=== PATIENT | female | born 1935 | race Caucasian/White ===

== ENCOUNTER 2023-05-09 12:40 | Inpatient (IN) | payer MEDICARE, OTHER, SELFPAY ==
[2023-05-09] VITALS (8 sets, daily range): BP systolic 121–152; BP diastolic 58–94; BMI 32.0
[2023-05-09 08:43] LABS: % Basophils 0.4 % (0-2); % Eosinophils 1.3 % (0-6); % Immature Granulocytes 0.4 % (0-0.5); % Lymphocytes 9.9 % (20.5-51.1); % Monocytes 7.1 % (1.7-9.3); % Neutrophils 80.9 % (42.2-75.2); Absolute Eosinophils 0.1 10^3/uL (0-0.7); Absolute Monocytes 0.7 10^3/uL (0.1-0.6); Hematocrit 28.7 % (37.0-47.0); Hemoglobin 9.2 g/dL (12.0-16.0); Mean Corp Hgb Conc. 32.1 g/dL (33.0-37.0); Mean Corpuscular Hgb 28.7 pg (27.0-31.0); Mean Corpuscular Volume 89.4 fL (81.0-99.0); Nucleated Red Blood Cells % 0 %; Platelet Count 158 10^3/uL (130-400); Red Blood Cell Count 3.21 10^6/uL (4.20-5.40); Red Cell Dist. Width 16.6 % (11.5-14.5); White Blood Cell Count 9.9 10^3/uL (4.8-10.8)
[2023-05-09 08:54] LABS: Lactic Acid 2.3 mmol/L (0.7-2.0)
[2023-05-09 08:58] LABS: ALT (SGPT) 18 U/L (0-35); AST (SGOT) 20 U/L (14-36); Alkaline Phosphatase 90 U/L (38-126); Blood Urea Nitrogen 58 mg/dl (7-17); Calcium 9.1 mg/dl (8.4-10.2); Carbon Dioxide 17 mmol/L (22-30); Chloride 109 mmol/L (98-107); Glucose 222 mg/dl (70-99); Potassium 4.8 mmol/L (3.5-5.1); Sodium 138 mmol/L (135-145); Total Bilirubin 0.8 mg/dl (0.2-1.3); Total Protein 5.5 g/dl (6.3-8.2); eGFR 30.83
--- NOTE | 2023-05-09 08:58 | ED.GENMED ---
History of Present Illness
<Cherie Sunshine PA-C - Last Filed: 05/09/23 18:42>
General
Chief Complaint: Dizziness
Source: patient
Exam Limitations: none
Time Seen by Provider: 05/09/23 08:56
Nursing documentation reviewed up to this point in time: agreed with
Travel History
Have you had any contact with someone who has COVID-19?: No
Do you have any symptoms of coronavirus? Fever > 100 degrees, chills, cough, shortness of breath, sore throat, loss of taste or smell, muscle aches, or headache?: No
History of Present Illness
History of Present Illness:
87 y/o female with a PMH of HTN, HLP, NIDDM, stage III CKD, presenting today with several dizzy episodes x1 day and one episode of seizure-like activity. Son is with mom in room and reports that today, she complained of several episodes of
dizziness while she was using the bathroom. Son reports that she has been having on and off episodes of dizziness for the past week, and been having trouble controlling her blood pressure. He states that she started to have 1 episode of tremors,
clenched jaw, and unresponsiveness for around 2 minutes. Son reports that she has never had an episode like this before. Patient does not recall the episode. She states that she was feeling dizzy in the bathroom and called for her son when
reportedly the seizure episode occurred. Of note, son reports that patient has had frequent fluctuations in her blood pressure. Currently, patient is on amlodipine, hydralazine, and labetalol. Son states that her blood pressure will drop low, she
will feel dizzy, and then he will withhold her next dose of blood pressure medications. He states that then, her blood pressure will spike very high and he will give 1 or 2 blood pressure pills and will likely drop again. Of note, patient also
reports that she has had a cough for the past 2 weeks ever since she left the rehab facility for her shoulder. Patient denies shortness of breath, chest pain, belly pain, dysuria, headaches, head trauma, falls.
Past History
<Cherie Sunshine PA-C - Last Filed: 05/09/23 18:42>
Past History
ED Past Medical History: HTN, Hypercholesterolemia, IDDM, Renal failure (Chronic kidney disease stage III) and Other (UTIs, one episode of urosepsis)
ED Past Surgical History: Other (Patient has a history of a hysterectomy)
Social History
Tobacco: Non-smoker
Alcohol: None
Personal:
Living: alone
Employment: Retired
Family History
Family History: Other (Noncontributory)
Review of Systems
<Cherie Sunshine PA-C - Last Filed: 05/09/23 18:42>
Review of Systems
All Other Systems: ROS reviewed and negative except as documented in HPI and ROS
Phy Exam
<Cherie Sunshine PA-C - Last Filed: 05/09/23 18:42>
Physical Exam
Physical Exam:
General: patient appears ill, no acute distress
Skin: warm and dry, no rashes or lesions
Cardiac: regular rate and rhythm, no murmurs
Peripheral Vascular: no lower extremity edema
Pulm: increased respiratory rate, end expiratory wheezes heard at lung bases, no rhonchi
Abdomen: no abdominal tenderness
Neuro: AAO x3. CN II-XII. Finger to nose, heel to williamson testing intact.
Course
<Cherie Sunshine PA-C - Last Filed: 05/09/23 18:42>
Orders/Labs/Results
Orders:
Orders
05/09/23 08:24
Electrocardiogram (*1) Urgent
Reason for Study: Vertigo / Dizzy
EKG- Treatment ONCE
05/09/23 08:35
CMP [Comprehensive Metabolic Panel] Urgent
COVID-19 Antigen Urgent
Source: Nasal Swab
Complete Blood Count/With Diff Urgent
Lactic Acid Urgent
Influenza A+B Rapid Molecular Urgent
SO Source: Nasal Swab
Specimen Description:
05/09/23 09:40
CT Head W/o Iv Contrast Urgent
Comment:
Reason For Exam: reported seizure like activity
Oseltamivir Phosphate [Tamiflu] 75 mg PO NOW STA
CR Chest - 2 Views Urgent
Comment:
Reason For Exam: cough, SOB
05/09/23 Lunch
2000 calorie (17 carb) Diabetic
At Your Request: Limited Participation
05/09/23 11:48
Admit/Transfer Patient As Directed
Co-Sign Provider:
Level of Care: Inpatient admission
Assign to:: Telemetry
Physician / Group: hosp
Diagnosis: Syncope versus seizure
Reason for Telemetry: Medication for Arrhythmia
Date to Stop Telemetry: 05/11/23
Time to Stop Telemetry: 11:00
Reason for Hospitalization: Acute influenza B/syncope/hypotension
Expected length of stay greater than two midnights?: Yes
ELOS- Estimated Length of Stay in days: 3
I certify the patient meets the requirements for IP care: Yes
05/09/23 11:51
Code Status As Directed
Resuscitation Status: Full Code
05/09/23 12:02
Dextrose 50%-Water [Dextrose 50% Syringe] 12.5 grams IV [id number] PRN
Glucagon [GlucaGen] 1 mg IM PRN PRN
Bedside Glucose Monitoring As Directed
Frequency: AC&HS
Comment: Change to q6h if pt on TPN, tube feeding or not eating
05/09/23 14:51
0.9% Sodium Chloride 1000 ml [Nss] 1,000 ml IV 60 mls/hr
Acetaminophen [Tylenol] 650 mg PO Q4HPRN PRN
Escitalopram Oxalate [Lexapro] 10 mg PO 1300
Ipratropium/Albuterol Sulfate [Duoneb] 3 ml INH R QID
05/09/23 14:51
Activity As Directed
Activity Level: With Assistance
Intake/ Output As Directed
Frequency: Per unit guidelines
Neurological Checks As Directed
Frequency: Per unit guidelines
Vital Signs As Directed
Frequency: Per unit guidelines
Pulse Ox/spot Check [RESP] Routine
Quantity: 1
DX Deep Vein Thrombosis Video Routine
05/09/23 15:00
HydrALAZINE [Apresoline] 25 mg PO QID
05/09/23 15:14
Complete Blood Count/No Diff Routine
05/09/23 16:30
Insulin Aspart Corrective Low [Novolog Flexpen-Low Resistance] See Protocol SC AC
05/09/23 20:00
Heparin 5,000 units SC Q12
Labetalol [Trandate] 300 mg PO BID
05/09/23 22:00
Atorvastatin [Lipitor] 20 mg PO HS
05/10/23 06:00
Basic Metabolic Panel IN AM
Complete Blood Count/No Diff IN AM
Glycohemoglobin (HgbA1c) IN AM
Iron IN AM
Total Iron Binding IN AM
05/10/23 08:00
Amlodipine [Norvasc] 2.5 mg PO DAILY
Glimepiride [Amaryl] 0.5 mg PO DAILY
Oseltamivir Phosphate [Tamiflu] 30 mg PO DAILY
05/11/23 06:00
Basic Metabolic Panel IN AM
Complete Blood Count/No Diff IN AM
05/11/23 11:00
DC Protocol for Telemetry ONCE
05/12/23 06:00
Basic Metabolic Panel IN AM
Abnormal Lab Results
05/09/23
08:35
RBC 3.21 L 10^6/uL
(4.20-5.40)
Hgb 9.2 L g/dL
(12.0-16.0)
Hct 28.7 L %
(37.0-47.0)
MCHC 32.1 L g/dL
(33.0-37.0)
RDW 16.6 H %
(11.5-14.5)
Absolute Neuts (auto) 8.0 H 10^3/uL
(1.4-6.5)
Absolute Lymphs (auto) 1.0 L 10^3/uL
(1.2-3.4)
Absolute Monos (auto) 0.7 H 10^3/uL
(0.1-0.6)
Neutrophils % 80.9 H %
(42.2-75.2)
Lymphocytes % 9.9 L %
(20.5-51.1)
Chloride 109 H mmol/L
(98-107)
Carbon Dioxide 17 L mmol/L
(22-30)
BUN 58 H mg/dl
(7-17)
Creatinine 1.6 H mg/dL
(0.6-1.0)
Glucose 222 H mg/dl
(70-99)
Lactic Acid 2.3 H mmol/L
(0.7-2.0)
Total Protein 5.5 L g/dl
(6.3-8.2)
Albumin 3.0 L g/dl
(3.5-5.0)
05/09/23 08:35
05/09/23 08:35
Vital Signs
Initial and Last Documented VS:
Initial Vital Signs
Temp Pulse Resp BP Pulse Ox
97.9 F 66 15 121/70 94
05/09/23 08:26 05/09/23 08:26 05/09/23 08:26 05/09/23 08:26 05/09/23 08:26
Last Documented Vital Signs
Temp Pulse Resp BP Pulse Ox
98.4 F 68 16 152/71 98
05/09/23 14:43 05/09/23 18:19 05/09/23 18:19 05/09/23 15:44 05/09/23 18:19
<Dedrick Joshi, DO - Last Filed: 05/09/23 10:39>
Orders/Labs/Results
Orders:
Orders
05/09/23 08:24
Electrocardiogram (*1) Urgent
Reason for Study: Vertigo / Dizzy
EKG- Treatment ONCE
05/09/23 08:35
CMP [Comprehensive Metabolic Panel] Urgent
COVID-19 Antigen Urgent
Source: Nasal Swab
Complete Blood Count/With Diff Urgent
Lactic Acid Urgent
Influenza A+B Rapid Molecular Urgent
SO Source: Nasal Swab
Specimen Description:
05/09/23 09:40
CT Head W/o Iv Contrast Urgent
Comment:
Reason For Exam: reported seizure like activity
Oseltamivir Phosphate [Tamiflu] 75 mg PO NOW STA
CR Chest - 2 Views Urgent
Comment:
Reason For Exam: cough, SOB
05/09/23 Lunch
2000 calorie (17 carb) Diabetic
At Your Request: Limited Participation
05/09/23 11:48
Admit/Transfer Patient As Directed
Co-Sign Provider:
Level of Care: Inpatient admission
Assign to:: Telemetry
Physician / Group: hosp
Diagnosis: Syncope versus seizure
Reason for Telemetry: Medication for Arrhythmia
Date to Stop Telemetry: 05/11/23
Time to Stop Telemetry: 11:00
Reason for Hospitalization: Acute influenza B/syncope/hypotension
Expected length of stay greater than two midnights?: Yes
ELOS- Estimated Length of Stay in days: 3
I certify the patient meets the requirements for IP care: Yes
05/09/23 11:51
Code Status As Directed
Resuscitation Status: Full Code
05/09/23 12:02
Dextrose 50%-Water [Dextrose 50% Syringe] 12.5 grams IV [id number] PRN
Glucagon [GlucaGen] 1 mg IM PRN PRN
Bedside Glucose Monitoring As Directed
Frequency: AC&HS
Comment: Change to q6h if pt on TPN, tube feeding or not eating
05/09/23 14:51
0.9% Sodium Chloride 1000 ml [Nss] 1,000 ml IV 60 mls/hr
Acetaminophen [Tylenol] 650 mg PO Q4HPRN PRN
Escitalopram Oxalate [Lexapro] 10 mg PO 1300
Ipratropium/Albuterol Sulfate [Duoneb] 3 ml INH R QID
05/09/23 14:51
Activity As Directed
Activity Level: With Assistance
Intake/ Output As Directed
Frequency: Per unit guidelines
Neurological Checks As Directed
Frequency: Per unit guidelines
Vital Signs As Directed
Frequency: Per unit guidelines
Pulse Ox/spot Check [RESP] Routine
Quantity: 1
DX Deep Vein Thrombosis Video Routine
05/09/23 15:00
HydrALAZINE [Apresoline] 25 mg PO QID
05/09/23 15:14
Complete Blood Count/No Diff Routine
05/09/23 16:30
Insulin Aspart Corrective Low [Novolog Flexpen-Low Resistance] See Protocol SC AC
05/09/23 20:00
Heparin 5,000 units SC Q12
Labetalol [Trandate] 300 mg PO BID
05/09/23 22:00
Atorvastatin [Lipitor] 20 mg PO HS
05/10/23 06:00
Basic Metabolic Panel IN AM
Complete Blood Count/No Diff IN AM
Glycohemoglobin (HgbA1c) IN AM
Iron IN AM
Total Iron Binding IN AM
05/10/23 08:00
Amlodipine [Norvasc] 2.5 mg PO DAILY
Glimepiride [Amaryl] 0.5 mg PO DAILY
Oseltamivir Phosphate [Tamiflu] 30 mg PO DAILY
05/11/23 06:00
Basic Metabolic Panel IN AM
Complete Blood Count/No Diff IN AM
05/11/23 11:00
DC Protocol for Telemetry ONCE
05/12/23 06:00
Basic Metabolic Panel IN AM
Abnormal Lab Results
05/09/23
08:35
RBC 3.21 L 10^6/uL
(4.20-5.40)
Hgb 9.2 L g/dL
(12.0-16.0)
Hct 28.7 L %
(37.0-47.0)
MCHC 32.1 L g/dL
(33.0-37.0)
RDW 16.6 H %
(11.5-14.5)
Absolute Neuts (auto) 8.0 H 10^3/uL
(1.4-6.5)
Absolute Lymphs (auto) 1.0 L 10^3/uL
(1.2-3.4)
Absolute Monos (auto) 0.7 H 10^3/uL
(0.1-0.6)
Neutrophils % 80.9 H %
(42.2-75.2)
Lymphocytes % 9.9 L %
(20.5-51.1)
Chloride 109 H mmol/L
(98-107)
Carbon Dioxide 17 L mmol/L
(22-30)
BUN 58 H mg/dl
(7-17)
Creatinine 1.6 H mg/dL
(0.6-1.0)
Glucose 222 H mg/dl
(70-99)
Lactic Acid 2.3 H mmol/L
(0.7-2.0)
Total Protein 5.5 L g/dl
(6.3-8.2)
Albumin 3.0 L g/dl
(3.5-5.0)
05/09/23 08:35
05/09/23 08:35
Vital Signs
Initial and Last Documented VS:
Initial Vital Signs
Temp Pulse Resp BP Pulse Ox
97.9 F 66 15 121/70 94
05/09/23 08:26 05/09/23 08:26 05/09/23 08:26 05/09/23 08:26 05/09/23 08:26
Last Documented Vital Signs
Temp Pulse Resp BP Pulse Ox
98.4 F 68 16 152/71 98
05/09/23 14:43 05/09/23 18:19 05/09/23 18:19 05/09/23 15:44 05/09/23 18:19
<Cherie Sunshine PA-C - Last Filed: 05/09/23 18:42>
MDM/Problems Addressed
Differential Diagnosis Includes:
cough: influenza, pneumonia
dizziness/seizure like activity: hypotension, hypoglycemia, anemia, syncope, electrolyte derangement, encephalitis, intracranial mass
MDM/Problems Addressed:
cough
dizziness
seizure
Chronic conditions affecting care: DM, HTN and Kidney disease
Acute Exacerbation and/or Progression of Chronic Illness: HTN
<Cherie Sunshine PA-C - Last Filed: 05/09/23 18:42>
*Pulse Oximetry
Patient hypoxic: no
*Critical Care Note
Total Time (30-74mins, 75-104mins- exclusive of procedures): Not Applicable
Data Reviewed
Review of Other/Old Records Reveals: Labs (CMP consistent with patient's chronic renal disease, CBC shows chronic anemia) and Discharge Summary (Reviewed discharge summary from 04/12/2023)
<Cherie Sunshine PA-C - Last Filed: 05/09/23 18:42>
Patient Management
Escalation/DeEscalation of care consider admission/obs:
87-year-old female with a past medical history of hypertension, CKD, hyperlipidemia, diabetes who presents to the emergency department today with cough and weakness for the past few days, and also dizziness/seizure like activity x 1 day. Apparent
seizure episode occurred when patient used the bathroom, and her blood pressure dropped low. I suspect her seizure episode was likely vasovagal syncope. However, considering she had never had anything like this before, a CT of the head was
obtained which was negative for any acute intracranial disease. While here in the emergency department, she did test positive for flu. Chest x-ray was negative for concurrent pneumonia. Considering her symptoms have persisted for quite some time
at home, her comorbidities, and her new disease, we will plan to admit for supportive care and further evaluation.
ED Attending Note
<Cherie Sunshine PA-C - Last Filed: 05/09/23 18:42>
-
Portions of this chart may have been created with voice recognition software.� Occasional wrong word or��sound alike� substitutions may have occurred due to the inherent limitations of voice recognition software.
<Dedrick Joshi, - Last Filed: 05/09/23 10:39>
ED Attending Note
Patient seen and examined by attending physician: Yes
I performed a history and physical exam of patient and discussed management with resident, I reviewed resident's note and agree with documented findings and plan of care.: Yes
ED Attending Note:
I have reviewed and agree with history and treatment plan by Cherie Sunshine. My exam revealed
Physical Exam
General: Afebrile
Neck: supple. no meningeal signs. normal posterior pharynx
Heart: s1/s2 regular rate and rhythm, no murmur. equal radial
pulses.
HEENT: Pupils equal round reactive to light, EOMI
Lungs: no acute respiratory distress. End expiratory wheezes bilaterally
Abdomen: normal bowel sounds. not tender. no CVAT
Neuro: alert and oriented. no focal neurological deficits cranial nerves II through XII intact
Skin: no rash
Psychiatric: well kept. interactive and cooperative
Extremities: no edema. no calf tenderness. negative homans. good distal pulses
Discharge Plan
Departure
Patient Disposition: Admit
Date of Disposition: 05/09/23
Time of Disposition: :09
Admit to: Med/Surg
Presentation/result/management discussed w/ accepting MD/DO: Hospitalist
Patient with high blood pressure during this ER visit?: No
Condition: Fair
Discharge Problem:
Influenza, Dizziness
Interventions
Interventions:
*Risk Screen - Suicide Last Done: 05/09/23 08:29
*Neglect/Abuse Screening Last Done: 05/09/23 08:29
ED- Fall Risk Assessment Last Done: 05/09/23 08:41
*ED COVID-19 Vaccine History Last Done: 05/09/23 08:40
*Nursing Disposition Last Done: 05/09/23 14:38
ED- Neurological Assessment Last Done: 05/09/23 08:41
ED- Cardiac Assessment Last Done: 05/09/23 08:41
ED Swallowing Screen Last Done: 05/09/23 09:35
Discharge Date and Time
Discharge Date/Time: 05/09/23 14:39
[2023-05-09 09:29] LABS: COVID-19 Antigen Negative (Negative)
[2023-05-09] MEDS: TAMIFLU 75 MG PO (09:46)
--- NOTE | 2023-05-09 12:03 | HPS.HSE ---
Family Physician
-
Family Physician: Erik Kaminski
Chief Complaint
-
Questionable seizure
History of Present Illness
87 y/o female with a PMH of HTN, HLP, NIDDM, stage III CKD, presenting today with several dizzy episodes x1 day and one episode of seizure-like activity.� Son is with mom in room and reports that today, she complained of several episodes of
dizziness while she was using the bathroom. Son reports that she has been having on and off episodes of dizziness for the past week, and been having trouble controlling her blood pressure. He states that she started to have 1 episode of tremors,
clenched jaw, and unresponsiveness for around 2 minutes.� Son reports that she has never had an episode like this before.� Patient does not recall the episode. She states that she was feeling dizzy in the bathroom and called for her son when
reportedly the seizure episode occurred. By description there was no apparent postictal period. Of note, son reports that patient has had frequent fluctuations in her blood pressure.�
Currently, patient is on amlodipine, hydralazine, and labetalol.� Son states that her blood pressure will drop low, she will feel dizzy, and then he will withhold her next dose of blood pressure medications.� He states that then, her blood pressure
will spike very high and he will give 1 or 2 blood pressure pills and will likely drop again.� Of note, patient also reports that she has had a cough for the past 2 weeks ever since she left the rehab facility for her shoulder.� After discharge from
[facility] she was seen by visiting nurses who felt that the cough should be treated with a course of Mucinex this past week is unclear whether the cough became worse as the prompting them to change treatment she did not have any febrile illness
throughout this past week. Patient denies shortness of breath, chest pain, belly pain, dysuria, headaches, head trauma, falls.
She was recently hospitalized with a presentation of hypoglycemia adjusting glimepiride dosing at time of discharge along with hemorrhagic cystitis that was treated with antibiotic and was seen and followed by urology prior to that the patient
suffered a humeral fracture there is still undergoing and needs follow-up with orthopedics she did not have a chance to have follow-up with orthopedics during her stay at [facility] and that is still pending she is still using a sling for the left arm
remains discolored and ecchymotic. She has very little range of motion to it. As part of that last admission she had a significant acute kidney injury in relation to contrast induced nephropathy with her creatinine going as high as 4.0 at the time
of her discharge her creatinine was 2.4 and is presently 1.8.
First time her blood sugars were measured on this occasion it was a value of 245 she also presented hypotensive
Medical History
Past Medical History
Past Medical History: Reports HTN, NIDDM, Renal Failure and Valvular Disease (Prior mild aortic stenosis with recheck of 2D echocardiogram also recent admission noting no change); Denies Seizures
Additional Past Medical History:
Recent left humeral fracture
Past Surgical History: Reports Gynocological
Additional Past Surgical History:
Hysterectomy
Social History
Tobacco: Non-smoker
Alcohol: None
Drug: None
Personal:
Living: Alone
Employment: Retired
Family History
Family History: Not pertinent
Allergies / Home Medications
Allergies reflects when Allergies were last updated in [facility].
Home Medications with original date entered in [facility]
Allergy/Medication List:
Allergies
Allergy/AdvReac Type Severity Reaction Status Date / Time
No Known Allergies Allergy Verified 05/09/23 08:40
Home Medications
atorvastatin 20 mg tablet (Lipitor) 20 mg PO HS 04/04/23
glimepiride 1 mg tablet 0.5 mg PO DAILY #0 tabs 04/12/23
labetalol 100 mg tablet 300 mg PO BID #0 tabs 04/12/23
Lactobac no.2-Bifidobac no.1-S. thermo 112.5 billion cell capsule (Visbiome) 1 cap PO DAILY 05/09/23
acetaminophen 325 mg tablet (Tylenol) 325 mg PO TIDPRN PRN mild pain 05/09/23
amlodipine 5 mg tablet 2.5 mg PO DAILY 05/09/23
escitalopram oxalate 10 mg tablet 10 mg PO 1300 05/09/23
guaifenesin 600 mg tablet, extended release 12 hr (Mucinex) 600 mg PO BID 05/09/23
hydrocortisone 1 % topical cream (Preparation H Hydrocortisone) 1 applic topical BID PRN hemorrihoids 05/09/23
loperamide 2 mg tablet 2 mg PO BIDPRN PRN diarrhea 05/09/23
Review of Systems
-
History Source: Patient and Family
Constitutional: Reports Fatigue; Denies Fever
Respiratory: Reports Cough
Cardiac: Reports No Symptoms
Abdomen/GI: Reports No Symptoms
: Reports No Symptoms
Skin: Reports Other
Physical Exam
Vital Signs
Vital Signs
Temp Pulse Resp BP Pulse Ox
97.9 F 71 19 137/71 96
05/09/23 08:26 05/09/23 11:15 05/09/23 11:15 05/09/23 11:00 05/09/23 11:15
Physical Exam
General: No Apparent Distress and Comfortable
HEENT: NormoCephalic
Respiratory: Rales (Harsh congested cough nonproductive), Rhonchi and Non Labored Respirations; No Accessory Resp Muscle Use
Cardiac: S1/S2, Regular Rhythm and Murmur
GI: Soft
Musculoskeletal: Edema, Left Upper Extremity (Ecchymosis from the mid bicep down to the elbow diminished range of motion and still referred pain)
Neuro: Awake, Alert, Oriented and AO x 3
Psych: Calm
Laboratory Results
-
05/09/23 08:35
05/09/23 08:35
Laboratory Results
Lactic Acid 2.3 mmol/L (0.7-2.0) H 05/09/23 08:35
Total Bilirubin 0.8 mg/dl (0.2-1.3) 05/09/23 08:35
AST 20 U/L (14-36) 05/09/23 08:35
ALT 18 U/L (0-35) 05/09/23 08:35
Alkaline Phosphatase 90 U/L (38-126) 05/09/23 08:35
Data Reviewed
-
Critical Care Time (in minutes): 56
Diagnostic Radiology: Report Reviewed by me and Discussed with Physician
CT Scan: Report Reviewed by me (Unremarkable CT of the head) and Discussed with Physician
Lab Data: Labs Reviewed by me (Creatinine down to at 1.8/bicarb 17 anion gap of 12/positive influenza B swab)
Impression/Plan
-
IMPRESSION:
87 y/o female with a PMH of HTN, HLP, NIDDM, stage III CKD, presenting today with several dizzy episodes x1 day and one episode of seizure-like activity.� Son is with mom in room and reports that today, she complained of several episodes of
dizziness while she was using the bathroom. Son reports that she has been having on and off episodes of dizziness for the past week, and been having trouble controlling her blood pressure. He states that she started to have 1 episode of tremors,
clenched jaw, and unresponsiveness for around 2 minutes.� Son reports that she has never had an episode like this before.� Patient does not recall the episode. She states that she was feeling dizzy in the bathroom and called for her son when
reportedly the seizure episode occurred. By description there was no apparent postictal period. Of note, son reports that patient has had frequent fluctuations in her blood pressure.�
Currently, patient is on amlodipine, hydralazine, and labetalol.� Son states that her blood pressure will drop low, she will feel dizzy, and then he will withhold her next dose of blood pressure medications.� He states that then, her blood pressure
will spike very high and he will give 1 or 2 blood pressure pills and will likely drop again.� Of note, patient also reports that she has had a cough for the past 2 weeks ever since she left the rehab facility for her shoulder.� After discharge from
[facility] she was seen by visiting nurses who felt that the cough should be treated with a course of Mucinex this past week is unclear whether the cough became worse as the prompting them to change treatment she did not have any febrile illness
throughout this past week. Patient denies shortness of breath, chest pain, belly pain, dysuria, headaches, head trauma, falls.
She was recently hospitalized with a presentation of hypoglycemia adjusting glimepiride dosing at time of discharge along with hemorrhagic cystitis that was treated with antibiotic and was seen and followed by urology prior to that the patient
suffered a humeral fracture there is still undergoing and needs follow-up with orthopedics she did not have a chance to have follow-up with orthopedics during her stay at [facility] and that is still pending she is still using a sling for the left arm
remains discolored and ecchymotic. She has very little range of motion to it. As part of that last admission she had a significant acute kidney injury in relation to contrast induced nephropathy with her creatinine going as high as 4.0 at the time
of her discharge her creatinine was 2.4 and is presently 1.8.
First time her blood sugars were measured on this occasion it was a value of 245 she also presented hypotensive
Influenza B
-Chest x-ray clear
-No apparent sepsis is not tachycardic and nor significant leukocytosis
-Unclear what treatment window is for her is indistinct onset of symptoms
-Significant congestion and cough
-Will place on renal dose Tamiflu for now/as elderly patient requiring hospitalization
-Cautious IV fluids
-Nebulizer and expectorant
Hypotension/questionable syncope versus seizure
-Having labile hypertension and hypotension as outpatient per family
-Tend to feel that the probably in relation to transient blood pressure changes she has had
-Cautious hydration
-CT of the head unremarkable/recent CTA also unremarkable
-Resume labetalol and amlodipine and low-dose hydralazine monitor
-Neurochecks/would hold off on neurology consult
Chronic kidney disease stage IIIb
-Recently admitted and had contrast-induced nephropathy with creatinine as high as 4.0
-Now seems to be at baseline creatinine 1.8
-Continue to monitor especially with swings in blood pressure
Systolic ejection murmur
-Mild to moderate aortic stenosis seen on most recent echo
-Could also be manifesting swings in blood pressure and symptoms
Recent humeral fracture left arm
-Continue immobilization and nonweightbearing
-He is to have outpatient follow-up with orthopedics
Type 2 diabetes mellitus
-Was hypoglycemic on most recent admission
-Had glimepiride reduced to 0.5 mg
-Sliding scale coverage no apparent presentation of hypoglycemia present event
Full CODE STATUS
DVT prophylaxis with heparin
[2023-05-09 15:23] LABS: Hematocrit 26.7 % (37.0-47.0); Hemoglobin 8.8 g/dL (12.0-16.0); Mean Corpuscular Hgb 28.8 pg (27.0-31.0); Mean Corpuscular Volume 87.3 fL (81.0-99.0); Mean Platelet Volume 10.1 fL (7.4-10.4); Platelet Count 152 10^3/uL (130-400); Red Blood Cell Count 3.06 10^6/uL (4.20-5.40); Red Cell Dist. Width 16.6 % (11.5-14.5)
[2023-05-09 15:29] LABS: Glucose - Point of Care 171 mg/dl (70-99)
[2023-05-09] MEDS: DUONEB 3 ML INH ×2 (15:36→18:17)
[2023-05-09] MEDS: NSS 1000 IV (15:42)
[2023-05-09] MEDS: DUONEB INH (15:42)
[2023-05-09] MEDS: APRESOLINE 25 MG PO ×2 (15:44→22:14)
[2023-05-09] MEDS: LEXAPRO 10 MG PO (15:44)
[2023-05-09] MEDS: APRESOLINE PO (16:27)
[2023-05-09] MEDS: NOVOLOG FLEXPEN-LOW RESISTANCE 1 UNITS SC (16:58)
[2023-05-09] MEDS: TRANDATE 300 MG PO (20:13)
[2023-05-09] MEDS: HEPARIN 5000 UNITS SC (20:13)
[2023-05-09 22:14] LABS: Glucose - Point of Care 115 mg/dl (70-99)
[2023-05-09] MEDS: LIPITOR 20 MG PO (22:14)
[2023-05-10] VITALS (7 sets, daily range): BP systolic 105–165; BP diastolic 48–78; PULSE 61–69
--- NOTE | 2023-05-10 01:37 | PTCARENOTE ---
Rec'd pt at the start of the shift awake and alert. Left arm is in a sling. arm is bruised. Only complaint of pain is with movement. NSS infusing as ordered. Pt is hopeful to go home tomorrow. Will continue to monitor closely.
[2023-05-10] MEDS: NSS 1000 IV (06:14)
[2023-05-10 07:47] LABS: Hematocrit 26.1 % (37.0-47.0); Hemoglobin 8.3 g/dL (12.0-16.0); Mean Corp Hgb Conc. 31.8 g/dL (33.0-37.0); Mean Corpuscular Hgb 28.8 pg (27.0-31.0); Mean Corpuscular Volume 90.6 fL (81.0-99.0); Mean Platelet Volume 10.4 fL (7.4-10.4); Platelet Count 141 10^3/uL (130-400); Red Blood Cell Count 2.88 10^6/uL (4.20-5.40); Red Cell Dist. Width 16.4 % (11.5-14.5); White Blood Cell Count 7.1 10^3/uL (4.8-10.8)
[2023-05-10 08:05] LABS: Blood Urea Nitrogen 59 mg/dl (7-17); Calcium 8.6 mg/dl (8.4-10.2); Carbon Dioxide 16 mmol/L (22-30); Chloride 112 mmol/L (98-107); Estimated Creatinine Clearance 21 ml/min; Glucose 105 mg/dl (70-99); Iron 49 ug/dl (37-170); Potassium 4.7 mmol/L (3.5-5.1); Sodium 138 mmol/L (135-145); eGFR 30.83
[2023-05-10 08:15] LABS: Percent Saturation 23 % (20-50); Total Iron Binding Capacity 210 ug/dl (265-497)
[2023-05-10 08:21] LABS: Glucose - Point of Care 100 mg/dl (70-99)
[2023-05-10] MEDS: DUONEB 3 ML INH ×2 (08:23→15:24)
[2023-05-10 08:50] LABS: Glycohemoglobin (HgbA1c) 5.8 % (4.0-5.6)
[2023-05-10] MEDS: NOVOLOG FLEXPEN-LOW RESISTANCE SC ×2 (10:09→18:25)
[2023-05-10] MEDS: TRANDATE 300 MG PO (10:09)
[2023-05-10] MEDS: TAMIFLU 30 MG PO (10:10)
[2023-05-10] MEDS: NORVASC 2.5 MG PO (10:11)
[2023-05-10] MEDS: APRESOLINE 25 MG PO ×3 (10:11→22:06)
[2023-05-10] MEDS: AMARYL 0.5 MG PO (10:11)
[2023-05-10] MEDS: HEPARIN 5000 UNITS SC ×2 (10:12→20:38)
[2023-05-10] MEDS: LEXAPRO PO (11:40)
[2023-05-10 11:50] LABS: Glucose - Point of Care 182 mg/dl (70-99)
[2023-05-10] MEDS: NOVOLOG FLEXPEN-LOW RESISTANCE 1 UNITS SC (11:52)
[2023-05-10] MEDS: DUONEB INH ×2 (12:04→19:46)
[2023-05-10] MEDS: LEXAPRO 10 MG PO (13:44)
--- NOTE | 2023-05-10 13:54 | W.PN.HOSP.TC ---
Today's Communication/Plan
-
cont tamiflu
PT/OT
seems like will need BP adjustment
Assessment / Plan
Assessment / Plan
pt is an 87 year old female
Hypotension/questionable syncope versus seizure--Having labile hypertension and hypotension as outpatient per family--Tend to feel that the probably in relation to transient blood pressure changes she has had--Cautious hydration, on IVF--CT of the
head unremarkable/recent CTA also unremarkable--Resume labetalol and amlodipine and low-dose hydralazine monitor--Neurochecks/would hold off on neurology consult
Influenza B--Chest x-ray clear--No apparent sepsis is not tachycardic and nor significant leukocytosis--Unclear what treatment window is for her is indistinct onset of symptoms--Significant congestion and cough--Will place on renal dose Tamiflu for
now/as elderly patient requiring hospitalization--Cautious IV fluids--Nebulizer and expectorant
Chronic kidney disease stage IIIb--Recently admitted and had contrast-induced nephropathy with creatinine as high as 4.0--Now seems to be at baseline creatinine 1.8--Continue to monitor especially with swings in blood pressure
Systolic ejection murmur--Mild to moderate aortic stenosis seen on most recent echo--Could also be manifesting swings in blood pressure and symptoms
Recent humeral fracture left arm-Continue immobilization and nonweightbearing-- is to have outpatient follow-up with orthopedics
Type 2 diabetes mellitus-Was hypoglycemic on most recent admission-Had glimepiride reduced to 0.5 mg-Sliding scale coverage no apparent presentation of hypoglycemia present event
Full CODE STATUS
DVT prophylaxis with heparin
Anticipated Discharge: > 48 hours
Subjective/Interval History
-
Date of Service: May 10, 2023
pt with arm in sling, doesn't know why she is in the hospital
Objective Data
-
Labs:
Laboratory Results
05/10/23
07:29
WBC 7.1
Hgb 8.3 L
Hct 26.1 L
Plt Count 141
Sodium 138
Potassium 4.7
Chloride 112 H
Carbon Dioxide 16 L
BUN 59 H
Creatinine 1.6 H
Glucose 105 H
Calcium 8.6
Vital Signs:
max temp for 24 hours
05/10/23
03:00
Temp 98.2 F
Vital Signs
Temp Pulse Resp BP Pulse Ox
97.5 F 72 16 165/78 97
05/10/23 07:25 05/10/23 08:29 05/10/23 08:29 05/10/23 07:25 05/10/23 08:29
I&O
05/09/23 05/10/23 05/11/23
06:59 06:59 06:59
Intake Total 420 / 420 1200 / 1200
Balance 420 / 420 1200 / 1200
Review of Systems
-
All other systems: Reviewed and negative
Physical Exam
-
General: Well Developed, Well Nourished and No Apparent Distress
HEENT: Normocephalic, Atraumatic and Other (face mask in place)
Respiratory: Clear to Auscultation; Negative Wheezes or Rhonchi
Cardiac: Regular Rhythm, S1/S2 and Murmur
GI: Soft, Nontender, Nondistended and Normal Bowel Sounds
Musculoskeletal: No Clubbing, No Cyanosis, No Edema and Other (left arm in a sling)
Neuro: Awake and Alert
Psych: Calm and Confused (can't tell me why she is here)
--- NOTE | 2023-05-10 16:04 | CM ---
Patient with quarantine restrictions due to Flu. CM spoke with patient son and physician via phone, IA completed. Per patient son,
Patient resides with her son & [id number] in a 2SH with 4STE. Patient son reports that he provides assistance with adls & mobility. Patient has been recently at [facility], and did not participate in therapies. Patient has [facility] currently and
would like to have them restart. Patient son states that he is arranging with [facility] to provide medications and has a r/w, single point cane, rollator, wheelchair. Currently patient uses [facility] on [address] [place]. Patient PCP is Dr. Kaminski.
Patient son states that he would like to have patient discharged back to home with [facility]. CM will continue to follow for discharge planning needs.
Plan; home with [facility] to restart for PT/OT and medication
[2023-05-10 17:04] LABS: Glucose - Point of Care 101 mg/dl (70-99)
[2023-05-10] MEDS: APRESOLINE PO (18:40)
[2023-05-10] MEDS: TRANDATE PO (20:38)
[2023-05-10 21:35] LABS: Glucose - Point of Care 113 mg/dl (70-99)
[2023-05-10] MEDS: LIPITOR 20 MG PO (22:06)
--- NOTE | 2023-05-10 23:44 | PTCARENOTE ---
Nader BAEZNP on the unit and made aware that pt had refused her 8pm Trandate as she was fearful that it would drop her blood pressure too low. BP at the time was 109/49. She did take her 10pm Apresoline for BP of 124/64
[2023-05-11] VITALS (11 sets, daily range): BP systolic 99–155; BP diastolic 39–77; PULSE 62–89; O2SAT 97
[2023-05-11 07:38] LABS: Glucose - Point of Care 95 mg/dl (70-99)
[2023-05-11] MEDS: NOVOLOG FLEXPEN-LOW RESISTANCE SC ×3 (07:56→16:45)
[2023-05-11] MEDS: HEPARIN 5000 UNITS SC ×2 (07:59→20:43)
[2023-05-11] MEDS: APRESOLINE 25 MG PO ×4 (07:59→22:02)
[2023-05-11] MEDS: AMARYL 0.5 MG PO (08:00)
[2023-05-11] MEDS: TRANDATE 300 MG PO ×2 (08:00→20:44)
[2023-05-11] MEDS: NORVASC 2.5 MG PO (08:00)
[2023-05-11] MEDS: TAMIFLU 30 MG PO (08:07)
[2023-05-11 08:25] LABS: Hemoglobin 8.5 g/dL (12.0-16.0); Mean Corp Hgb Conc. 31.5 g/dL (33.0-37.0); Mean Corpuscular Hgb 28.7 pg (27.0-31.0); Mean Corpuscular Volume 91.2 fL (81.0-99.0); Mean Platelet Volume 10.6 fL (7.4-10.4); Platelet Count 147 10^3/uL (130-400); Red Blood Cell Count 2.96 10^6/uL (4.20-5.40); Red Cell Dist. Width 16.8 % (11.5-14.5); White Blood Cell Count 6.9 10^3/uL (4.8-10.8)
[2023-05-11] MEDS: DUONEB 3 ML INH ×4 (08:46→19:34)
[2023-05-11 09:00] LABS: Blood Urea Nitrogen 57 mg/dl (7-17); Calcium 9.1 mg/dl (8.4-10.2); Carbon Dioxide 17 mmol/L (22-30); Chloride 112 mmol/L (98-107); Estimated Creatinine Clearance 22 ml/min; Glucose 86 mg/dl (70-99); Magnesium 1.9 mg/dl (1.6-2.3); Potassium 4.6 mmol/L (3.5-5.1); Sodium 137 mmol/L (135-145); eGFR 33.31
[2023-05-11 11:39] LABS: Glucose - Point of Care 147 mg/dl (70-99)
--- NOTE | 2023-05-11 12:49 | PN.CDI ---
CDI
- -
CDI:
Physician Documentation Request
Admit Date: 05/09/23 12:40
Dear Doctor Jenn,
Clinical Indicators:
Patient admitted with hypotension/questionable syncope vs seizure & Influenza B.
05/10 RN Skin/Wound assessment: Bilateral heels, Stage 1 Pressure Injury
Treatment: Silicone border foam dressing per protocol
Physician documentation of the type and location of wounds is required for compliant documentation. Based on the above clinical findings and your assessment, please provide the following in your progress note:
1. Location of the ulcer/wound, including laterality.
2. Type (etiology) of ulcer/wound:
- Pressure (decubitus) ulcer
- Other, please specify
- Unable to determine
3. If a pressure ulcer, please also include the stage* of the ulcer:
- Stage 1 - Skin intact, non-blanchable redness
- Stage 2 - Partial thickness loss of dermis, includes intact or open blister
- Stage 3 - Full thickness tissue not including bone, tendon or muscle
- Stage 4 - Full thickness tissue loss, including exposed bone, tendon or muscle
- Unstageable - Full thickness loss in which the base of the ulcer is covered by slough (yellow, priest, toscano, green or brown) and/or eschar (priest, brown or black) in the wound bed.
- Unable to determine
Use of terms such as suspected, likely, concern for, or probable (associated with a specific diagnosis that is being evaluated, monitored, or treated as if it exists) are acceptable and can be coded in the inpatient setting, when documented at the
time of discharge.
Thank you,
SUJEY Tamayo RN
CDI Specialist
available via tiger text
Please use your independent medical judgment in providing your response.
*Source: National Pressure Ulcer Advisory Panel (NPUAP)
[2023-05-11] MEDS: LEXAPRO 10 MG PO (13:07)
--- NOTE | 2023-05-11 15:10 | W.PN.HOSP.TC ---
Today's Communication/Plan
-
need to check proper orthostatic vital signs
finish tamiflu
d/c planning
Assessment / Plan
Assessment / Plan
pt is an 87 year old female
Hypotension/questionable syncope versus seizure--Having labile hypertension and hypotension as outpatient per family--Tend to feel that the probably in relation to transient blood pressure changes she has had--Cautious hydration, on IVF--CT of the
head unremarkable/recent CTA also unremarkable--Resume labetalol and amlodipine and low-dose hydralazine monitor--Neurochecks/would hold off on neurology consult
Influenza B--Chest x-ray clear--No apparent sepsis is not tachycardic and nor significant leukocytosis--Unclear what treatment window is for her is indistinct onset of symptoms--Significant congestion and cough--Will place on renal dose Tamiflu for
now/as elderly patient requiring hospitalization--Cautious IV fluids--Nebulizer and expectorant
Chronic kidney disease stage IIIb--Recently admitted and had contrast-induced nephropathy with creatinine as high as 4.0--Now seems to be at baseline creatinine 1.8--Continue to monitor especially with swings in blood pressure
Systolic ejection murmur--Mild to moderate aortic stenosis seen on most recent echo--Could also be manifesting swings in blood pressure and symptoms
Recent humeral fracture left arm-Continue immobilization and nonweightbearing-- is to have outpatient follow-up with orthopedics
Type 2 diabetes mellitus-Was hypoglycemic on most recent admission-Had glimepiride reduced to 0.5 mg-Sliding scale coverage no apparent presentation of hypoglycemia present event
wound --2/ Bilateral heels, Stage 1 Pressure Injury (POA)
Full CODE STATUS
DVT prophylaxis with heparin
Anticipated Discharge: 24 - 48 hours
Subjective/Interval History
-
Date of Service: May 11, 2023
pt been in the chair awhile
Objective Data
-
Labs:
Laboratory Results
05/11/23
07:10
WBC 6.9
Hgb 8.5 L
Hct 27.0 L
Plt Count 147
Sodium 137
Potassium 4.6
Chloride 112 H
Carbon Dioxide 17 L
BUN 57 H
Creatinine 1.5 H
Glucose 86
Calcium 9.1
Vital Signs:
max temp for 24 hours
05/10/23
19:30
Temp 98.4 F
Vital Signs
Temp Pulse Resp BP Pulse Ox
97.9 F 65 16 120/56 100
05/11/23 11:11 05/11/23 13:09 05/11/23 12:10 05/11/23 13:09 05/11/23 11:11
I&O
05/10/23 05/11/23 05/12/23
06:59 06:59 06:59
Intake Total 420 / 420 2410 / 2410
Balance 420 / 420 2410 / 2410
Review of Systems
-
All other systems: Reviewed and negative
Physical Exam
-
General: Appears Chronically Ill
HEENT: Normocephalic and Atraumatic
Respiratory: Rhonchi; Negative Clear to Auscultation or Wheezes
Cardiac: Regular Rhythm and S1/S2; Negative Murmur
GI: Soft, Nontender, Nondistended and Normal Bowel Sounds
Musculoskeletal: No Clubbing, No Cyanosis, No Edema and Other (left arm in sling)
Neuro: Awake
Psych: Calm
[2023-05-11 16:46] LABS: Glucose - Point of Care 83 mg/dl (70-99)
[2023-05-11 21:40] LABS: Glucose - Point of Care 99 mg/dl (70-99)
[2023-05-11] MEDS: LIPITOR 20 MG PO (22:02)
[2023-05-12 07:38] LABS: Glucose - Point of Care 109 mg/dl (70-99)
[2023-05-12] MEDS: NOVOLOG FLEXPEN-LOW RESISTANCE SC ×3 (07:42→17:13)
[2023-05-12 07:46] LABS: Hemoglobin 8.2 g/dL (12.0-16.0); Mean Corp Hgb Conc. 31.5 g/dL (33.0-37.0); Mean Corpuscular Hgb 28.1 pg (27.0-31.0); Mean Platelet Volume 10.3 fL (7.4-10.4); Platelet Count 154 10^3/uL (130-400); Red Blood Cell Count 2.92 10^6/uL (4.20-5.40); Red Cell Dist. Width 16.9 % (11.5-14.5); White Blood Cell Count 6.7 10^3/uL (4.8-10.8)
[2023-05-12 07:55] VITALS: BP 154/70; BP 169/73; PULSE 65; PULSE 74
[2023-05-12] MEDS: DUONEB 3 ML INH ×4 (08:05→19:56)
[2023-05-12 08:29] LABS: Blood Urea Nitrogen 52 mg/dl (7-17); Calcium 9.1 mg/dl (8.4-10.2); Carbon Dioxide 17 mmol/L (22-30); Chloride 112 mmol/L (98-107); Estimated Creatinine Clearance 22 ml/min; Glucose 97 mg/dl (70-99); Potassium 4.9 mmol/L (3.5-5.1); Sodium 138 mmol/L (135-145); eGFR 33.31
[2023-05-12] MEDS: APRESOLINE 25 MG PO ×3 (10:10→22:18)
[2023-05-12] MEDS: AMARYL 0.5 MG PO (10:10)
[2023-05-12] MEDS: NORVASC 2.5 MG PO (10:10)
[2023-05-12] MEDS: TRANDATE 300 MG PO (10:11)
[2023-05-12] MEDS: TAMIFLU 30 MG PO (10:12)
[2023-05-12] MEDS: HEPARIN 5000 UNITS SC ×2 (10:13→20:07)
[2023-05-12 11:39] LABS: Glucose - Point of Care 145 mg/dl (70-99)
--- NOTE | 2023-05-12 14:58 | W.PN.HOSP.TC ---
Today's Communication/Plan
-
adjust BP meds
finish tamiflu
hopeful d/c Wednesday with home health
Assessment / Plan
Assessment / Plan
pt is an 87 year old female
Hypotension/questionable syncope versus seizure--Having labile hypertension and hypotension as outpatient per family--Tend to feel that the probably in relation to transient blood pressure changes she has had--Cautious hydration, on IVF--CT of the
head unremarkable/recent CTA also unremarkable--Resume labetalol and amlodipine and low-dose hydralazine monitor--Neurochecks/would hold off on neurology consult--pt orthostatic positive--adjusted BP meds
Influenza B--Chest x-ray clear--No apparent sepsis is not tachycardic and nor significant leukocytosis--Unclear what treatment window is for her is indistinct onset of symptoms--Significant congestion and cough--Will place on renal dose Tamiflu for
now/as elderly patient requiring hospitalization--stop IVF--Nebulizer and expectorant
Chronic kidney disease stage IIIb--Recently admitted and had contrast-induced nephropathy with creatinine as high as 4.0--Now seems to be at baseline creatinine 1.8--Continue to monitor especially with swings in blood pressure
Systolic ejection murmur--Mild to moderate aortic stenosis seen on most recent echo--Could also be manifesting swings in blood pressure and symptoms
Recent humeral fracture left arm-Continue immobilization and nonweightbearing-- is to have outpatient follow-up with orthopedics
Type 2 diabetes mellitus-Was hypoglycemic on most recent admission-Had glimepiride reduced to 0.5 mg-Sliding scale coverage no apparent presentation of hypoglycemia present event
wound --2/12 Bilateral heels, Stage 1 Pressure Injury (POA)
Full CODE STATUS
DVT prophylaxis with heparin
Anticipated Discharge: > 48 hours
Subjective/Interval History
-
Date of Service: May 12, 2023
pt finishing tamiflu
Objective Data
-
Labs:
Laboratory Results
05/12/23
07:21
WBC 6.7
Hgb 8.2 L
Hct 26.0 L
Plt Count 154
Sodium 138
Potassium 4.9
Chloride 112 H
Carbon Dioxide 17 L
BUN 52 H
Creatinine 1.5 H
Glucose 97
Calcium 9.1
Vital Signs:
max temp for 24 hours
05/11/23
17:05 05/12/23
07:55
Temp 97.8 F
Supine- Blood Pressure 154/76
Sitting- Blood Pressure 125/60
Standing- Blood Pressure 110/53
Standing- Pulse 89
Supine- Pulse 71
Sitting- Pulse 82
Vital Signs
Temp Pulse Resp BP Pulse Ox
97.8 F 59 16 169/73 98
05/12/23 07:55 05/12/23 11:48 05/12/23 11:48 05/12/23 07:55 05/12/23 11:48
I&O
05/11/23 05/12/23 05/13/23
06:59 06:59 06:59
Intake Total 2410 / 2410 480 / 480
Output Total 200 / 200
Balance 2410 / 2410 280 / 280
Review of Systems
-
All other systems: Reviewed and negative
Physical Exam
-
General: Well Developed, Well Nourished and No Apparent Distress
HEENT: Normocephalic and Atraumatic; Negative Oxygen
Respiratory: Clear to Auscultation; Negative Wheezes, Rales, Rhonchi or Crackles
Cardiac: Regular Rhythm, S1/S2 and Murmur
GI: Soft, Nontender, Nondistended and Normal Bowel Sounds
Musculoskeletal: No Clubbing, No Cyanosis, No Edema and Other (left arm in sling)
Neuro: Awake
[2023-05-12] MEDS: APRESOLINE PO (14:59)
[2023-05-12] MEDS: LEXAPRO 10 MG PO (14:59)
--- NOTE | 2023-05-12 15:39 | CM ---
Addendum entered by Dee Butler 05/12/23 15:56:
[facility] referral sent 05/11 and accepted.
Original Note:
Patient seen by physician. Plan for return home with [facility] to be restarted at discharge. CM will continue to follow for discharge planning needs.
Plan; returned to home with VN;[facility] referral to be sent.
[2023-05-12 15:55] VITALS: BP 108/49; BP 120/53; BP 148/64; PULSE 69; PULSE 75; PULSE 92
[2023-05-12 16:50] LABS: Glucose - Point of Care 132 mg/dl (70-99)
[2023-05-12] MEDS: TRANDATE 200 MG PO (20:08)
[2023-05-12 21:18] LABS: Glucose - Point of Care 121 mg/dl (70-99)
[2023-05-12] MEDS: LIPITOR 20 MG PO (22:19)
[2023-05-12 23:32] VITALS: BP 110/45
[2023-05-13 06:58] LABS: Hematocrit 27.3 % (37.0-47.0); Hemoglobin 8.7 g/dL (12.0-16.0); Mean Corp Hgb Conc. 31.9 g/dL (33.0-37.0); Mean Corpuscular Hgb 28.2 pg (27.0-31.0); Mean Corpuscular Volume 88.3 fL (81.0-99.0); Mean Platelet Volume 10.1 fL (7.4-10.4); Platelet Count 159 10^3/uL (130-400); Red Blood Cell Count 3.09 10^6/uL (4.20-5.40); Red Cell Dist. Width 17.1 % (11.5-14.5); White Blood Cell Count 6.4 10^3/uL (4.8-10.8)
[2023-05-13 07:00] VITALS: BP 131/79; BP 142/70; BP 183/81; PULSE 72; PULSE 77; PULSE 87
[2023-05-13 07:25] VITALS: BP 183/81
[2023-05-13 07:32] LABS: Blood Urea Nitrogen 42 mg/dl (7-17); Calcium 9.1 mg/dl (8.4-10.2); Carbon Dioxide 17 mmol/L (22-30); Chloride 114 mmol/L (98-107); Estimated Creatinine Clearance 22 ml/min; Glucose 89 mg/dl (70-99); Magnesium 1.8 mg/dl (1.6-2.3); Potassium 4.8 mmol/L (3.5-5.1); Sodium 138 mmol/L (135-145); eGFR 33.31
[2023-05-13] MEDS: DUONEB 3 ML INH ×2 (07:47→12:09)
[2023-05-13 08:09] LABS: Glucose - Point of Care 105 mg/dl (70-99)
[2023-05-13] MEDS: TAMIFLU 30 MG PO (08:36)
[2023-05-13] MEDS: AMARYL 0.5 MG PO (08:36)
[2023-05-13] MEDS: NOVOLOG FLEXPEN-LOW RESISTANCE SC ×2 (08:37→17:03)
[2023-05-13] MEDS: HEPARIN 5000 UNITS SC ×2 (08:37→21:33)
[2023-05-13] MEDS: APRESOLINE 25 MG PO ×3 (08:37→21:34)
[2023-05-13] MEDS: NORVASC 2.5 MG PO (08:37)
[2023-05-13] MEDS: TRANDATE 200 MG PO (08:37)
[2023-05-13 11:31] VITALS: BP 73/42; BP 92/48; BP 92/51; PULSE 69; PULSE 72; PULSE 82; O2SAT 96
[2023-05-13 11:42] LABS: Glucose - Point of Care 154 mg/dl (70-99)
[2023-05-13] MEDS: NOVOLOG FLEXPEN-LOW RESISTANCE 1 UNITS SC (13:14)
[2023-05-13] MEDS: LEXAPRO 10 MG PO (13:14)
[2023-05-13 15:05] VITALS: BP 127/60
--- NOTE | 2023-05-13 15:11 | CM ---
Patient son has aides set up with [facility], and [facility] aides. Referral sent to [facility] and accepted. Patient son indicated that he is concerned about need for ambulance transportation. CM spoke with Helder from Acute care due to orthostatic issues and
need for 2 person assistance plan is to have ambulance transportation home. Patient son email is [email or web address], CM reviewed IMM and will email form to patient son. CM will continue to follow for discharge planning needs.
Plan; home with [facility] and aides.
[2023-05-13] MEDS: DUONEB INH ×2 (15:52→19:18)
[2023-05-13 16:16] LABS: Glucose - Point of Care 121 mg/dl (70-99)
--- NOTE | 2023-05-13 16:24 | W.PN.HOSP.TC ---
Today's Communication/Plan
-
adjust BP meds
finish tamiflu
Assessment / Plan
Assessment / Plan
pt is an 87 year old female
Hypotension/questionable syncope versus seizure--Having labile hypertension and hypotension as outpatient per family--Tend to feel that the probably in relation to transient blood pressure changes she has had--Cautious hydration, on IVF--CT of the
head unremarkable/recent CTA also unremarkable--Resume labetalol and amlodipine and low-dose hydralazine monitor--Neurochecks/would hold off on neurology consult--pt orthostatic positive--adjusted BP meds, still orthostatic, adjusted again
Influenza B--Chest x-ray clear--No apparent sepsis is not tachycardic and nor significant leukocytosis--Unclear what treatment window is for her is indistinct onset of symptoms--Significant congestion and cough--finish tamiflu--stop IVF--Nebulizer
and expectorant
Chronic kidney disease stage IIIb--Recently admitted and had contrast-induced nephropathy with creatinine as high as 4.0--Now seems to be at baseline creatinine 1.8--Continue to monitor especially with swings in blood pressure
Systolic ejection murmur--Mild to moderate aortic stenosis seen on most recent echo--Could also be manifesting swings in blood pressure and symptoms
Recent humeral fracture left arm-Continue immobilization and nonweightbearing-- is to have outpatient follow-up with orthopedics
Type 2 diabetes mellitus-Was hypoglycemic on most recent admission-Had glimepiride reduced to 0.5 mg-Sliding scale coverage no apparent presentation of hypoglycemia present event
wound --2/12 Bilateral heels, Stage 1 Pressure Injury (POA)
Full CODE STATUS
DVT prophylaxis with heparin
Anticipated Discharge: Within 24 hours
Subjective/Interval History
-
Date of Service: May 13, 2023
pt remains orthostatic
Objective Data
-
Labs:
Laboratory Results
05/13/23
06:17
WBC 6.4
Hgb 8.7 L
Hct 27.3 L
Plt Count 159
Sodium 138
Potassium 4.8
Chloride 114 H
Carbon Dioxide 17 L
BUN 42 H
Creatinine 1.5 H
Glucose 89
Calcium 9.1
Vital Signs:
max temp for 24 hours
05/12/23
23:32
Temp 98.2 F
Vital Signs
Temp Pulse Resp BP Pulse Ox
97.9 F 69 16 127/60 95
05/13/23 15:05 05/13/23 15:05 05/13/23 15:05 05/13/23 15:05 05/13/23 15:05
I&O
05/12/23 05/13/23 05/14/23
06:59 06:59 06:59
Intake Total 480 / 480 1500 / 1500
Output Total 200 / 200
Balance 280 / 280 1500 / 1500
Review of Systems
-
All other systems: Reviewed and negative
Physical Exam
-
General: Well Developed, Well Nourished and No Apparent Distress
HEENT: Normocephalic and Atraumatic
Respiratory: Clear to Auscultation; Negative Wheezes or Rhonchi
Cardiac: Regular Rhythm and S1/S2; Negative Murmur
GI: Soft, Nontender, Nondistended and Normal Bowel Sounds
Musculoskeletal: No Clubbing, No Cyanosis and No Edema
Neuro: Awake
[2023-05-13 21:19] LABS: Glucose - Point of Care 96 mg/dl (70-99)
[2023-05-13] MEDS: TRANDATE 300 MG PO (21:34)
[2023-05-13] MEDS: LIPITOR 20 MG PO (21:34)
[2023-05-13 23:24] VITALS: BP 125/59
[2023-05-13 23:27] VITALS: BP 125/59; BP 75/59; BP 83/39; PULSE 59; PULSE 76; PULSE 81
[2023-05-14] MEDS: DUONEB INH ×4 (07:22→19:29)
[2023-05-14 07:46] LABS: Glucose - Point of Care 106 mg/dl (70-99)
[2023-05-14 08:15] LABS: Hematocrit 26.3 % (37.0-47.0); Hemoglobin 8.4 g/dL (12.0-16.0); Mean Corp Hgb Conc. 31.9 g/dL (33.0-37.0); Mean Corpuscular Hgb 28.5 pg (27.0-31.0); Mean Corpuscular Volume 89.2 fL (81.0-99.0); Mean Platelet Volume 10.5 fL (7.4-10.4); Platelet Count 168 10^3/uL (130-400); Red Blood Cell Count 2.95 10^6/uL (4.20-5.40); Red Cell Dist. Width 17.1 % (11.5-14.5); White Blood Cell Count 7.1 10^3/uL (4.8-10.8)
[2023-05-14 08:24] VITALS: BP 153/75
[2023-05-14 08:26] VITALS: BP 121/64; BP 153/75; PULSE 70; PULSE 73
[2023-05-14 08:49] LABS: Blood Urea Nitrogen 40 mg/dl (7-17); Calcium 8.9 mg/dl (8.4-10.2); Carbon Dioxide 17 mmol/L (22-30); Chloride 113 mmol/L (98-107); Estimated Creatinine Clearance 24 ml/min; Glucose 92 mg/dl (70-99); Magnesium 1.7 mg/dl (1.6-2.3); Sodium 137 mmol/L (135-145); eGFR 36.19
[2023-05-14] MEDS: NOVOLOG FLEXPEN-LOW RESISTANCE SC ×3 (08:51→16:36)
[2023-05-14] MEDS: AMARYL 0.5 MG PO (10:05)
[2023-05-14] MEDS: TRANDATE 200 MG PO (10:05)
[2023-05-14] MEDS: HEPARIN 5000 UNITS SC (10:06)
[2023-05-14] MEDS: TAMIFLU 30 MG PO (10:06)
[2023-05-14 11:37] LABS: Glucose - Point of Care 119 mg/dl (70-99)
[2023-05-14] MEDS: NORVASC 2.5 MG PO (12:07)
[2023-05-14] MEDS: LEXAPRO 10 MG PO (12:07)
[2023-05-14 13:45] VITALS: BP 109/66; BP 132/105; BP 151/72; PULSE 81; PULSE 84; PULSE 96
--- NOTE | 2023-05-14 14:14 | W.PN.HOSP.TC ---
Today's Communication/Plan
-
d/c
Assessment / Plan
Assessment / Plan
pt is an 87 year old female
Hypotension/questionable syncope versus seizure--Having labile hypertension and hypotension as outpatient per family--Tend to feel that the probably in relation to transient blood pressure changes she has had--Cautious hydration, on IVF--CT of the
head unremarkable/recent CTA also unremarkable--Resume labetalol and amlodipine and low-dose hydralazine monitor--Neurochecks/would hold off on neurology consult--pt orthostatic positive--adjusted BP meds, still orthostatic, adjusted again--now
better, not symptomatic
Influenza B--Chest x-ray clear--No apparent sepsis is not tachycardic and nor significant leukocytosis--Unclear what treatment window is for her is indistinct onset of symptoms--Significant congestion and cough--finish tamiflu--stop IVF--Nebulizer
and expectorant
Chronic kidney disease stage IIIb--Recently admitted and had contrast-induced nephropathy with creatinine as high as 4.0--Now seems to be at baseline creatinine 1.8--Continue to monitor especially with swings in blood pressure
Systolic ejection murmur--Mild to moderate aortic stenosis seen on most recent echo--Could also be manifesting swings in blood pressure and symptoms
Recent humeral fracture left arm-Continue immobilization and nonweightbearing-- is to have outpatient follow-up with orthopedics
Type 2 diabetes mellitus-Was hypoglycemic on most recent admission-Had glimepiride reduced to 0.5 mg-Sliding scale coverage no apparent presentation of hypoglycemia present event
wound --05/10 Bilateral heels, Stage 1 Pressure Injury (POA)
Full CODE STATUS
DVT prophylaxis with heparin
OK for d/c
Anticipated Discharge: Today
Subjective/Interval History
-
Date of Service: May 14, 2023
pt ok for d/c
Objective Data
-
Labs:
Laboratory Results
05/14/23
07:24
WBC 7.1
Hgb 8.4 L
Hct 26.3 L
Plt Count 168
Sodium 137
Potassium 5.0
Chloride 113 H
Carbon Dioxide 17 L
BUN 40 H
Creatinine 1.4 H
Glucose 92
Calcium 8.9
Vital Signs:
max temp for 24 hours
05/13/23
23:24
Temp 98.6 F
Vital Signs
Temp Pulse Resp BP Pulse Ox
97.8 F 70 18 153/75 97
05/14/23 08:24 05/14/23 08:24 05/14/23 08:24 05/14/23 08:24 05/14/23 08:24
I&O
05/13/23 05/14/23 05/15/23
06:59 06:59 06:59
Intake Total 1500 / 1500 1140 / 1140
Balance 1500 / 1500 1140 / 1140
Review of Systems
-
All other systems: Reviewed and negative
Physical Exam
-
General: Well Developed, Well Nourished and No Apparent Distress
HEENT: Normocephalic and Atraumatic
Respiratory: Clear to Auscultation; Negative Wheezes or Rhonchi
Cardiac: Regular Rhythm and S1/S2; Negative Murmur
GI: Soft, Nontender, Nondistended and Normal Bowel Sounds
Musculoskeletal: No Clubbing, No Cyanosis, No Edema and Other (left arm in sling)
--- NOTE | 2023-05-14 14:19 | CM ---
Addendum entered by Dee Butler 05/14/23 15:36:
Patient son made aware of ambulance set up at 9pm.
Original Note:
Patient seen by physician at bedside. Patient for discharge home with [facility] following and patient son indicated he was working on aides with [facility]. Patient for ambulance transportation home today with Acute care and transportation forms
completed. CM will continue to follow for discharge planning needs.
Plan; home with [facility] and aides.
[2023-05-14 15:57] VITALS: BP 151/70
[2023-05-14 16:33] LABS: Glucose - Point of Care 114 mg/dl (70-99)
[2023-05-14] MEDS: HEPARIN SC (18:30)
--- NOTE | 2023-05-14 18:30 | PTCARENOTE ---
Pt DC'd to home. 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
[2023-05-14 21:34] LABS: Glucose - Point of Care 85 mg/dl (70-99)
[2023-05-14 22:03] VITALS: BP 151/66
[2023-05-14] MEDS: TRANDATE 300 MG PO (22:18)
[2023-05-14] MEDS: LIPITOR 20 MG PO (22:18)
--- NOTE | 2023-05-14 22:59 | PTCARENOTE ---
Patient DCed home via ambulance (acute care). All pt. belongings sent with pt. VSS upon time of DC. Pt.'s son to meet pt. with EMS upon arrival to pt home.
--- NOTE | 2023-05-15 13:12 | W.DCSUMMARY ---
Discharge Summary
Discharge Data
Date of Admission: 05/09/23
Date of Discharge: 05/14/23
-
Pending Results: No
Hospital Course
Primary care physician : Erik Kaminski
Principal Discharge diagnosis : Symptomatic orthostatic hypotension, influenza B positive
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
Hospital Course : Patient was an 87-year-old female with significant medical issues who presented with dizzy episodes on the day of admission. There was some concern for 'seizure-like activity'. Patient complained of several episodes of dizziness
while using the bathroom and she was having on and off episodes of dizziness for the past week prior to admission. They were also having trouble controlling her blood pressure. She had 1 episode of tremors, clenched jaw and unresponsiveness for
around 2 minutes. Patient did not recall the episode. Patient's son handles her medications and states that her blood pressure will drop below, she will feel dizzy and then he will withhold the next dose of medications and then recheck the blood
pressure and give medications if the blood pressure is back to normal. Patient was found to be influenza positive as she was having a cough which prompted her to come to the emergency department. Patient was admitted.
Problem #1: Symptomatic orthostatic hypotension. This was keeping her in the hospital. She was given cautious hydration. CAT scan of the head was unremarkable, recent CAT scan angiography was also unremarkable. Labetalol, amlodipine and low-dose
hydralazine were all continued. It was then found that the hydralazine had been discontinued by her primary care physician. Medications continued to be adjusted. Although the patient still was orthostatic by numbers, the patient was no longer
symptomatic and dizzy. Visiting nurses have been set up to monitor the patient's blood pressure at home. I told the patient's son not to dose medications based on checking the blood pressure prior to each dose.
Problem #2: Influenza B positivity. Chest x-ray was found to be clear. She was started on Tamiflu renally dosed. She will finish her Tamiflu as an outpatient. She did not require oxygen.
Problem #3: All other medical issues. 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
hypertension. With the exception of the essential hypertension as noted above, these medical issues were stable during her hospitalization. Medications were continued as able.
Patient is stable for discharge at this time. She will be going home with visiting nurses. If there are any questions regarding this dictation or her hospital stay, please not hesitate to call. Our office number is [phone].
Time for discharge 37 minutes.
Important imaging findings :
CT HEAD IMPRESSION:
No acute intracranial abnormalities.
Findings compatible with diffuse cortical atrophy with nonspecific white matter changes as described above.
Discharge Plan
-
Patient Disposition: Home with Home Care
Discharge Diagnosis/Procedures: Symptomatic orthostatic hypotension, influenza B, chronic kidney disease stage IIIb, systolic ejection murmur, recent left humeral fracture, type 2 diabetes mellitus, bilateral heel stage I pressure injury wounds
present on admission
Condition: Good
Diet: Low Cholesterol and Diabetic, Carb Controlled
Activity: As tolerated
Driving Restrictions: As prior to admission
Bathing Restrictions: None
Other Services: VN, PT and OT
Referrals:
Erik Kaminski MD [Family Provider] - in less than 1 week
Prescriptions:
New
oseltamivir 30 mg Capsule
30 mg PO DAILY Qty: 3 0RF
Rx Instructions:
take through 05/15/23
labetalol 200 mg Tablet
200 mg PO DAILY Qty: 30 0RF
labetalol 200 mg Tablet
300 mg PO HS Qty: 60 0RF
amlodipine 2.5 mg Tablet
2.5 mg PO DAILY@1200 Qty: 0 0RF
Continued
atorvastatin [Lipitor] 20 mg Tablet
20 mg PO HS
glimepiride 1 mg Tablet
0.5 mg PO DAILY Qty: 0 0RF
escitalopram oxalate 10 mg Tablet
10 mg PO NOON
acetaminophen [Tylenol] 325 mg Tablet
325 mg PO TIDPRN PRN (Reason: mild pain)
loperamide 2 mg Tablet
2 mg PO BIDPRN PRN (Reason: diarrhea)
hydrocortisone [Preparation H Hydrocortisone] 1 % Cream
1 applic TOPICAL BID PRN (Reason: hemorrhoids)
Visbiome 112.5 billion cell Capsule
1 cap PO DAILY
guaifenesin [Mucinex] 600 mg Tablet Extended Release 12hr
600 mg PO BID
Discontinued
labetalol 100 mg Tablet
300 mg PO BID Qty: 0 0RF
amlodipine 5 mg Tablet
2.5 mg PO DAILY
Discharge Orders:
Discharge Patient (As Directed); Ordered 05/14/23
Ordered By: Irma Barajas
Discharge Date and Time
Discharge Date/Time: 05/14/23 23:06
== END 2023-05-14 23:06 | disposition home health service (06) | DRG 307 ==
LOC: 4 WEST ACU 12:40
PROVIDERS: ADMITTING PHYSICIAN Internal Medicine; ATTENDING PHYSICIAN Internal Medicine; EMERGENCY PHYSICIAN Emergency Medicine; FAMILY PHYSICIAN Internal Medicine Geriatric Medicine
DX: I35.0 Nonrheumatic aortic (valve) stenosis (principal); S42.302A Unspecified fracture of shaft of humerus, left arm, initial encounter for closed fracture; J10.1 Influenza due to other identified influenza virus with other respiratory manifestations; I95.1 Orthostatic hypotension; E11.22 Type 2 diabetes mellitus with diabetic chronic kidney disease; N18.32 Chronic kidney disease, stage 3b; T50.8X5A Adverse effect of diagnostic agents, initial encounter; N14.11 Contrast-induced nephropathy; L89.91 Pressure ulcer of unspecified site, stage 1; Z11.52 Encounter for screening for COVID-19; E11.649 Type 2 diabetes mellitus with hypoglycemia without coma; I12.9 Hypertensive chronic kidney disease with stage 1 through stage 4 chronic kidney disease, or unspecified chronic kidney disease; L89.621 Pressure ulcer of left heel, stage 1; L89.611 Pressure ulcer of right heel, stage 1
CPT/HCPCS: 70450; 71046; 80048; 80053; 82962; 83036; 83540; 83550; 83605; 83735; 85025; 85027; 87502; 87811; 93005; 94640; 97110; 97162; 97167; 97530; 99285

== ENCOUNTER 2023-05-16 21:48 | Inpatient (IN) | payer MEDICARE, OTHER, SELFPAY ==
[2023-05-16] VITALS (8 sets, daily range): BP systolic 141–176; BP diastolic 66–80; BMI 30.2
[2023-05-16 18:47] LABS: Glucose - Point of Care 63 mg/dl (70-99)
--- NOTE | 2023-05-16 19:13 | ED.GENMED ---
History of Present Illness
General
Chief Complaint: Seizure
Source: patient and records
Time Seen by Provider: 05/16/23 18:56
Travel History
Have you had any contact with someone who has COVID-19?: No
Do you have any symptoms of coronavirus? Fever > 100 degrees, chills, cough, shortness of breath, sore throat, loss of taste or smell, muscle aches, or headache?: No
History of Present Illness
History of Present Illness:
This patient is a very pleasant 87-year-old female presents to the emergency department from home via EMS. EMS was called because of reported seizure-like activity. As per report from bedside RN, medics suspected a tonic-clonic seizure and gave
her 2.5 mg of Versed, described her as 'shaking all over'. Her blood sugar at that time was 22 and she was given 250 mL of D10. Her blood sugar here is now in the mid 60s and patient is awake and alert. Patient reports that she was feeling fine
today. She took a shower, and as she was getting dressed she started to feel like she needed to have a bowel movement. She walked to the bathroom and as she tried to close the door she fell. She denies preceding symptoms such as dizziness, chest
pain, palpitations, etc. Her next memory is waking up on the floor. She denies any symptoms at this time. She is annoyed that she is here. She reports recent episodes of hypoglycemia, and bedside RN reports a recent event of hypoglycemia of 22
measured by medics, patient was given sugar and refused transfer to the hospital at that time. Patient denies a seizure history. Prior records reviewed, patient was recently hospitalized with syncope versus seizure in the differential, was
ultimately attributed to transient hypotension. Patient does take oral diabetes medication, sulfonylurea, dose was decreased to 0.5 mg daily. Her son administers her medications. She last ate around lunchtime when she had potato soup and says she
did not have dinner because she was not hungry. Patient denies neck pain, chest pain, abdominal pain, nausea, vomiting, numbness, tingling, headache, or other complaints at this time.
Past History
Past History
ED Past Medical History: HTN, Hypercholesterolemia, NIDDM, Renal failure (Chronic kidney disease stage III) and Other (UTIs, one episode of urosepsis)
ED Past Surgical History: Other (Patient has a history of a hysterectomy)
Social History
Tobacco: Non-smoker
Alcohol: None
Personal:
Living: with family
Employment: Retired
Family History
Family History: Other (Noncontributory)
Phy Exam
Physical Exam
Physical Exam:
GENERAL: Alert , in no apparent distress
EYE: pupils equal and reactive, no photophobia, eomi
NECK: Supple, no significant adenopathy, no midline ttp.
ENT: o/p clr, mmm, no mcfadden, no raccoon, no signs of head/facial injury.
CARDIAC: Regular rate and rhythm .
LUNGS: Clear breath sounds bilaterally, no acute respiratory distress, no wheezes/rales/rhonchi
ABDOMEN: Soft, protuberant (baseline) without focal tenderness, no r/g
NEUROLOGICAL: Alert and oriented, no focal neuro deficits, maee, sens intact light touch, cn 2-12 intact
SKIN: Warm and dry, skin intact.
MUSCULOSKELETAL: No edema, well perfused.
PSYCH: Normal and appropriate interaction.
Course
Orders/Labs/Results
Orders:
Orders
05/16/23 Dinner
1800 calorie (15 carb) Diabetic
At Your Request: Limited Participation
Fluid Restriction: 1200 mL/day (40 oz)
05/16/23 19:08
CT Head W/o Iv Contrast Stat
Comment:
Reason For Exam: suspected sz
05/16/23 19:09
Electrocardiogram (*1) Stat
Reason for Study: Other
Other Reason for Exam: neuro symptoms
Cardiac Monitoring- Treatment ONCE
EKG- Treatment ONCE
UA [Urinalysis] Urgent
Date Specimen was Collected: 05/17/23
Time Specimen was Collected: 03:23
05/16/23 19:12
Complete Blood Count/No Diff Urgent
Comprehensive Metabolic Panel Urgent
Troponin I Urgent
05/16/23 19:37
Dextrose 50%-Water [Dextrose 50% Syringe] 25 grams .ROUTE .STK-MED ONE
05/16/23 21:13
Dextrose 50%-Water [Dextrose 50% Syringe] 25 grams IV NOW STA
05/16/23 21:21
Admit/Transfer Patient As Directed
Co-Sign Provider:
Level of Care: Inpatient admission
Assign to:: IMU- Intermediate Care
Physician / Group: saul santana
Diagnosis: syncope 2/2 recurrent hypoglycemia
Reason for Hospitalization: syncope 2/2 recurrent hypoglycemia
Expected length of stay greater than two midnights?: Yes
ELOS- Estimated Length of Stay in days: 2
I certify the patient meets the requirements for IP care: Yes
Code Status As Directed
Resuscitation Status: Full Code
05/16/23 22:46
Acetaminophen [Tylenol] 325 mg PO TIDPRN PRN
Atorvastatin [Lipitor] 20 mg PO HS
Dextrose 50%-Water [Dextrose 50% Syringe] 12.5 grams IV [id number] PRN
Glucagon [GlucaGen] 1 mg IM PRN PRN
05/16/23 22:46
Activity As Directed
Activity Level: With Assistance
Bedside Glucose Monitoring As Directed
Frequency: AC&HS
Comment: Change to q6h if pt on TPN, tube feeding or not eating
Intake/ Output As Directed
Frequency: Per unit guidelines
Vital Signs As Directed
Frequency: Per unit guidelines
Weight As Directed
Frequency: Daily
Ot Eval And Treat Routine
Pt Eval And Treat Routine
Activity Level: With Assistance
DX Deep Vein Thrombosis Video Routine
05/17/23 04:10
Basic Metabolic Panel IN AM
Complete Blood Count/With Diff IN AM
Cortisol, Random IN AM
05/17/23 08:00
Guaifenesin [Mucinex] 600 mg PO BID
Labetalol [Trandate] 200 mg PO BID
05/17/23 12:00
Amlodipine [Norvasc] 2.5 mg PO DAILY@1200
Escitalopram Oxalate [Lexapro] 10 mg PO NOON
05/17/23 18:00
Enoxaparin Sodium [Lovenox] 30 mg SC QPM
Abnormal Lab Results
05/16/23 05/16/23 05/16/23
18:45 19:12 19:35
RBC 3.03 L 10^6/uL
(4.20-5.40)
Hgb 8.7 L g/dL
(12.0-16.0)
Hct 26.3 L %
(37.0-47.0)
RDW 17.1 H %
(11.5-14.5)
Sodium 130 L mmol/L
(135-145)
Carbon Dioxide 16 L mmol/L
(22-30)
BUN 47 H mg/dl
(7-17)
Creatinine 1.5 H mg/dL
(0.6-1.0)
Glucose < 30 L* mg/dl
(70-99)
Total Protein 5.8 L g/dl
(6.3-8.2)
Albumin 3.1 L g/dl
(3.5-5.0)
POC Glucose 63 L mg/dl 24 L* mg/dl
(70-99) (70-99)
05/16/23
20:04
RBC
Hgb
Hct
RDW
Sodium
Carbon Dioxide
BUN
Creatinine
Glucose
Total Protein
Albumin
POC Glucose 138 H mg/dl
(70-99)
05/16/23 19:12
05/16/23 19:12
Vital Signs
Initial and Last Documented VS:
Initial Vital Signs
Pulse Resp
84 13
05/16/23 18:59 05/16/23 18:59
Last Documented Vital Signs
Temp Pulse Resp BP Pulse Ox
97.5 F 71 20 164/73 98
05/19/23 12:02 05/19/23 12:06 05/19/23 12:02 05/19/23 12:06 05/19/23 12:02
*Critical Care Note
Total Time (30-74mins, 75-104mins- exclusive of procedures): Not Applicable
Update Note
Update Note:
Patient presents to the Emergency Department with __hypogylcemia and possible sz
Number and Complexity of Problems Addressed at the Encounter
� Chronic conditions affecting care:
� Acute Exacerbation and/or Progression of Chronic Illness:
� Differential Diagnosis includes: hypoglycemic induced sz, myoclonic jerks s/p syncope, electrolyte d/o, medication effect, etc.
Amount and/or Complexity of Data to be Reviewed and Analyzed
� I performed an independent evaluation of and my interpretation is:
EKG:read by me, nsr, rbb, no acute ischemia
CT:
Xrays:
Laboratory Studies: anemia (8.7) baseline
Other:
� Review of other/old records reveals: Inpt d/c summary: Patient was just discharged with an episode of syncope versus seizure that was attributed to transient hypotension. Was at a rehab and then came back to the hospital, has
been living with son since discharged just a few days ago.
� Clinical information was obtained by an independent historian:
� Prescriptions/Medications Considered but not given:
� Further testing considered but not performed:
Risk of Complications and/or Morbidity or Mortality of Patient Management
� Social determinants of health affecting care:
� Discussion with other providers (PCP, Hospitalists, Consultants, etc):
� Escalation of care including admission/observation vs risk of discharge considered:Of note, while I was not present to witness event, however no postictal state reported, no tongue laceration, no urinary incontinence. Patient
did have an episode of diarrhea nonbloody on transport.
8:04 PM family now at bedside. They give a much more detailed history. They state that patient was her usual self today, high potato soup, and then said she wanted to lay down. Son then heard her calling for him and when he went to her she was in
the bed with very wide eyes and breathing funny. This is what she typically looks like when her blood sugar goes low. Medics were called, son gave her orange juice and then water mixed with sugar. Upon medic arrival blood sugar was 24, she was
given sugar by medics as well with resolution of symptoms. She declined transport at that time. Then, later tonight, patient was in bed when she had a similar events. This is in contrast to what patient describes in regards to going to the
bathroom and then falling on the ground. Family confirms that there was no actual fall and that patient was in bed when this happened. They did notice that patient had 'convulsions', lasting approximately 5 minutes and resolved when medics gave
her medication, unclear if this was the benzo versus sugar that resolved her event. Afterwards, she was very sleepy. Hearing this history, concern much greater for likely seizure before arrival here. Then, while here in the emergency department
after my initial assessment, family arrived and as they were sitting with the patient noticed that she was again having an episode that appeared to be consistent with hypoglycemia described as eyes wide looking glassy. Blood sugar checked here very
low, given an amp of D50 and now symptoms fully resolved. I have hung D10 and and rechecking a blood sugar now. I confirmed with son that she is just getting her usual 0.5 mg dose of glipizide every morning last dose was this morning, no insulin
or other diabetes related medications administered.
ED Attending Note
-
Portions of this chart may have been created with voice recognition software.� Occasional wrong word or��sound alike� substitutions may have occurred due to the inherent limitations of voice recognition software.
Discharge Plan
Departure
Patient Disposition: Admit
Date of Disposition: 05/16/23
Time of Disposition: 20:40
Admit to: ICU
Presentation/result/management discussed w/ accepting MD/DO: Hospitalist
Condition: Fair
Discharge Problem:
Hypoglycemia, Seizure
Interventions
Interventions:
*Risk Screen - Suicide Last Done: 05/17/23 00:05
*General Assessment Last Done: 05/16/23 18:47
*Neglect/Abuse Screening Last Done: 05/16/23 18:47
ED- Fall Risk Assessment Last Done: 05/16/23 22:59
*ED COVID-19 Vaccine History Last Done: 05/17/23 00:29
*Nursing Disposition Last Done: 05/16/23 22:59
ED- Cardiac Assessment Last Done: 05/16/23 18:57
ED- Neurological Assessment Last Done: 05/16/23 19:15
ED- Pulmonary Assessment Last Done: 05/16/23 18:53
Discharge Date and Time
Discharge Date/Time: 05/16/23 23:00
[2023-05-16 19:17] LABS: Hematocrit 26.3 % (37.0-47.0); Hemoglobin 8.7 g/dL (12.0-16.0); Mean Corp Hgb Conc. 33.1 g/dL (33.0-37.0); Mean Corpuscular Hgb 28.7 pg (27.0-31.0); Mean Corpuscular Volume 86.8 fL (81.0-99.0); Mean Platelet Volume 9.9 fL (7.4-10.4); Platelet Count 188 10^3/uL (130-400); Red Blood Cell Count 3.03 10^6/uL (4.20-5.40); Red Cell Dist. Width 17.1 % (11.5-14.5); White Blood Cell Count 8.5 10^3/uL (4.8-10.8)
[2023-05-16] MEDS: DEXTROSE 50% SYRINGE 25 GRAMS IV (19:35)
[2023-05-16 19:37] LABS: Glucose - Point of Care 24 mg/dl (70-99)
[2023-05-16 19:39] LABS: ALT (SGPT) 25 U/L (0-35); AST (SGOT) 30 U/L (14-36); Albumin 3.1 g/dl (3.5-5.0); Alkaline Phosphatase 88 U/L (38-126); Blood Urea Nitrogen 47 mg/dl (7-17); Calcium 8.7 mg/dl (8.4-10.2); Carbon Dioxide 16 mmol/L (22-30); Chloride 106 mmol/L (98-107); Glucose < 30 mg/dl (70-99); Sodium 130 mmol/L (135-145); Total Bilirubin 0.7 mg/dl (0.2-1.3); Total Protein 5.8 g/dl (6.3-8.2); eGFR 33.31
[2023-05-16 19:42] LABS: Troponin I < 0.012 ng/ml
[2023-05-16 20:05] LABS: Glucose - Point of Care 138 mg/dl (70-99)
--- NOTE | 2023-05-16 20:49 | HPS.HSE ---
Addendum entered and electronically signed by Timur Kinsey MD 05/16/23 21:39:
Attending addendum.
Patient was seen, examined, and interviewed independently. I reviewed and agree with SOCIAL MEDIA INTERN note.
87 woman with low blood sugar, likely seizure, and on DM med. Her A1c is 5.8
Exam: AAOx3, pleasant. No focal neuro findings. Arm in a sling
A/P:
Syncope 2/2 Recurrent hypoglycemia/DM2, still on DM meds
-STOP sulfonylurea
-Accu-Cheks every 2 hours
-Iv D10 gtt 100 cc/hr
-Dextrose as needed
-PT/OT/case management consult
please see note below for full details on:
# acute on chronic Ambulatory dysfunction secondary to deconditioning
#Hyponatremia�mild
#HTN�benign
#HLD
#Recent influenza B 05/09/2023
#CKD stage IIIb
#Anemia of chronic disease normocytic
#Recent humeral fracture left arm
#Bilateral heel stage I pressure ulcers present admission 05/10- resolved
#Depression
Original Note:
Family Physician
-
Family Physician: Erik Kaminski
Chief Complaint
-
Hypoglycemia
History of Present Illness
87-year-old female from home via EMS with reported seizure-like activity. She was given 2.5 mg of Versed by EMS but then found to have a blood sugar of 22 was then given 250 mL of D10. She reported to the ER she took a shower was getting dressed
felt as if she needed to have a bowel movement she then walked to the bathroom and attempted to close a door and fell. She reports episodes recently of hypoglycemia with recent hospitalization on 05/09/2023 where she had her sulfonylurea decreased
to 0.5 mg daily. She reports eating at lunchtime today potato soup but did not have any dinner. She has other past medical history of hypertension, hyperlipidemia, CKD stage III, UTIs, urosepsis, ambulatory dysfunction.
Medical History
Past Medical History
Past Medical History: Reports HTN, NIDDM, Renal Failure and Valvular Disease (Prior mild aortic stenosis with recheck of 2D echocardiogram also recent admission noting no change); Denies Seizures
Additional Past Medical History:
Recent left humeral fracture
HLD
Normocytic anemia
Influenza B 05/09/2023
CKD 3B
Depression
Past Surgical History: Reports Gynocological
Additional Past Surgical History:
Hysterectomy
Social History
Tobacco: Non-smoker
Alcohol: None
Drug: None
Personal:
Living: With Family
Employment: Retired
Family History
Family History: Not pertinent
Allergies / Home Medications
Allergies reflects when Allergies were last updated in [email or web address].
Home Medications with original date entered in [email or web address]
Allergy/Medication List:
Allergies
Allergy/AdvReac Type Severity Reaction Status Date / Time
No Known Allergies Allergy Verified 05/09/23 08:40
Home Medications
atorvastatin 20 mg tablet (Lipitor) 20 mg PO HS High Cholesterol 04/04/23
glimepiride 1 mg tablet 0.5 mg PO DAILY #0 tabs 04/12/23
Lactobac no.2-Bifidobac no.1-S. thermo 112.5 billion cell capsule (Visbiome) 1 cap PO DAILY Supplement 05/09/23
acetaminophen 325 mg tablet (Tylenol) 325 mg PO TIDPRN PRN mild pain 05/09/23
escitalopram oxalate 10 mg tablet 10 mg PO NOON Depression 05/09/23
guaifenesin 600 mg tablet, extended release 12 hr (Mucinex) 600 mg PO BID Congestion 05/09/23
hydrocortisone 1 % topical cream (Preparation H Hydrocortisone) 1 applic topical BID PRN hemorrhoids 05/09/23
loperamide 2 mg tablet 2 mg PO BIDPRN PRN diarrhea 05/09/23
amlodipine 2.5 mg tablet 2.5 mg PO DAILY@1200 #0 tabs 05/14/23
labetalol 200 mg tablet 200 mg PO BID 05/16/23
Review of Systems
-
History Source: Patient and Family (Son at bedside)
A 12 point ROS was completed and negative except as noted: Yes
Constitutional: Denies Fever, Fatigue or Chills
EENT: Denies Sore Throat or Runny Nose
Respiratory: Denies Cough or Trouble Breathing
Cardiac: Denies Chest Pain, Diaphoresis, Palpitations or Syncope
Abdomen/GI: Denies Abdominal Pain, Nausea, Vomiting, Diarrhea, Constipated or Bloody Stools
: Denies Dysuria, Frequency, Flank Pain, Incontinence, Difficulty Voiding or Urgency
Musculoskeletal: Reports Other (Left arm in current sling due to humerus fracture from March 29); Denies Joint Pain or Edema
Skin: Denies Itching or Rash
Neurological: Reports Other (Syncope status post hypoglycemia); Denies Dizzy or Headache
Endocrine: Reports No Symptoms
Hematologic/Lymphatic: Reports No Symptoms
Psych: Reports Calm
Physical Exam
Vital Signs
Vital Signs
Temp Pulse Resp BP Pulse Ox
98.1 F 70 21 145/69 98
05/16/23 19:03 05/16/23 20:30 05/16/23 20:30 05/16/23 20:00 05/16/23 20:15
Physical Exam
General: No Apparent Distress, Comfortable and Conversant; No Fever or Chills
HEENT: NormoCephalic, Anicteric, Moist mucous membranes, PERRLA, Arthur Conjunctivae and No Ptosis
Respiratory: Clear; No Wheezes, Rales or Rhonchi
Cardiac: S1/S2 and Regular Rhythm; No Murmur, Rub, Gallop or Peripheral Edema
Breast: Deferred by me
GI: Soft, Non Tender, Non Distended, Normal Bowel Sounds and No Hepatosplenomegaly
Genito-urinary: Deferred by me
Musculoskeletal: No Clubbing, No Cyanosis, No Edema and Other (Left upper arm in sling due to prior humerus fracture March 29)
Skin: Warm and Dry; No Rash
Neuro: AO x 3, Nonfocal/grossly intact and No Sensory Deficits; No Slurred Speech, Facial Droop, Tremors or Sedated
Psych: Calm
Laboratory Results
-
05/16/23 19:12
05/16/23 19:12
Laboratory Results
Total Bilirubin 0.7 mg/dl (0.2-1.3) 05/16/23 19:12
AST 30 U/L (14-36) 05/16/23 19:12
ALT 25 U/L (0-35) 05/16/23 19:12
Alkaline Phosphatase 88 U/L (38-126) 05/16/23 19:12
Troponin I < 0.012 ng/ml 05/16/23 19:12
Impression/Plan
-
Impression/plan:
Admit to IMU
#Syncope 2/2 Recurrent hypoglycemia/DM2
-STOP sulfonylurea
-Recent HgbA1c 5.8 on 05/10/2023
-Accu-Cheks every 2 hours
-Iv D10 gtt 100 cc/hr
-Dextrose as needed
-PT/OT/case management consult
# acute on chronic Ambulatory dysfunction secondary to deconditioning
-Family to follow-up with home PT
#Hyponatremia�mild
NA 130
Follow BMP
#HTN�benign
145/80
-Continue amlodipine 2.5 mg daily, labetalol 200mg bid
#HLD
-Continue atorvastatin
#Recent influenza B 05/09/2023
-Patient finished Tamiflu
#CKD stage IIIb
-Creat 1.5, baseline 1.8
#Anemia of chronic disease normocytic
Hgb 8.7 appears near baseline
#Recent humeral fracture left arm
-Continue immobilization and nonweightbearing
Is to have outpatient follow-up with Ortho
#Bilateral heel stage I pressure ulcers present admission 05/10- resolved
#Depression
Lexapro 10 mg at noon
DVT prophylaxis
Subcu heparin
Full code
[2023-05-16 21:56] LABS: Glucose - Point of Care 67 mg/dl (70-99)
[2023-05-16] MEDS: D10W 1000 IV ×3 (22:35→23:54)
[2023-05-16] MEDS: D10W 500 IV (23:09)
[2023-05-16] MEDS: DEXTROSE 50% SYRINGE 12.5 GRAMS IV (23:40)
[2023-05-16 23:47] LABS: Glucose - Point of Care 15 mg/dl (70-99)
[2023-05-16] MEDS: LIPITOR PO (23:55)
[2023-05-17] VITALS (15 sets, daily range): BP systolic 95–161; BP diastolic 45–86; PULSE 75–92; O2SAT 96–97; BMI 29.9
[2023-05-17] LABS: Glucose - Point of Care 209 mg/dl (70-99)
--- NOTE | 2023-05-17 00:30 | PTCARENOTE ---
Pt brought up by ED RN. Pt AAOX3 at that time. RN steps out to clarify orders for D10w from ED to transfer with the pharmacy, short time later hears PT yell out from room. Upon RN entering room RN sees Pt having seizure like activity, Pt is mumbling
and unable to respond to questions. RN turns Pt to side while calling for help. Pt projectile vomits while on side and is inc of B&B, episode lasting around 7 minutes. Pt glucose 15. Pt given D5. MINE EXPERT notified restarted on D10w, see MAR. Pt recheck
glucose 209. Pt AAOX3, able to communicate needs.
[2023-05-17 01:15] LABS: Glucose - Point of Care 85 mg/dl (70-99)
[2023-05-17 02:07] LABS: Glucose - Point of Care 99 mg/dl (70-99)
[2023-05-17 03:06] LABS: Glucose - Point of Care 89 mg/dl (70-99)
--- NOTE | 2023-05-17 03:32 | PTCARENOTE ---
Pt inc of urine bladder scan @0335 for 735, straight cath for 1000. Pt tolerated well.
--- NOTE | 2023-05-17 03:59 | W.PN.UPDATE ---
Update Note
Progress Note Update
At 2330, Nursing notified about patient again having seizure activity (tonic clonic movements) bedside glucose of 15. Hypoglycemic protocol followed and D10W IVF restarted.
[2023-05-17 04:24] LABS: Glucose - Point of Care 75 mg/dl (70-99)
[2023-05-17 04:30] LABS: % Basophils 0.4 % (0-2); % Eosinophils 1.7 % (0-6); % Immature Granulocytes 0.7 % (0-0.5); % Lymphocytes 6.2 % (20.5-51.1); % Monocytes 7.1 % (1.7-9.3); % Neutrophils 83.9 % (42.2-75.2); Absolute Eosinophils 0.2 10^3/uL (0-0.7); Absolute Immature Granulocytes 0.1 10^3/uL (0-0.05); Absolute Lymphocytes 0.6 10^3/uL (1.2-3.4); Absolute Monocytes 0.7 10^3/uL (0.1-0.6); Absolute Neutrophils 8.2 10^3/uL (1.4-6.5); Hematocrit 27.7 % (37.0-47.0); Mean Corp Hgb Conc. 32.5 g/dL (33.0-37.0); Mean Corpuscular Hgb 28.7 pg (27.0-31.0); Mean Corpuscular Volume 88.2 fL (81.0-99.0); Mean Platelet Volume 10.6 fL (7.4-10.4); Nucleated Red Blood Cells % 0 %; Platelet Count 174 10^3/uL (130-400); Red Blood Cell Count 3.14 10^6/uL (4.20-5.40); Red Cell Dist. Width 16.3 % (11.5-14.5); White Blood Cell Count 9.8 10^3/uL (4.8-10.8)
[2023-05-17] MEDS: SODIUM CHLORIDE 1038.5 MEQ IV ×3 (04:30→22:20)
[2023-05-17 05:12] LABS: Urine Albumin 1+ (Neg - Trace); Urine Bilirubin Negative (Negative); Urine Character Slightly Cloudy (Clear); Urine Color Yellow; Urine Glucose Negative (Negative); Urine Ketone Negative (Negative); Urine Leukocyte 1+ (Negative); Urine Nitrite Negative (Negative); Urine Occult Blood Negative (Negative); Urine Urobilinogen Negative (Neg - 1+)
[2023-05-17 05:13] LABS: Glucose - Point of Care 96 mg/dl (70-99)
[2023-05-17 05:36] LABS: Blood Urea Nitrogen 43 mg/dl (7-17); Calcium 8.7 mg/dl (8.4-10.2); Carbon Dioxide 19 mmol/L (22-30); Chloride 99 mmol/L (98-107); Cortisol, Random 26.8 ug/dl; Estimated Creatinine Clearance 25 ml/min; Glucose 77 mg/dl (70-99); Potassium 5.2 mmol/L (3.5-5.1); Sodium 127 mmol/L (135-145); eGFR 36.19
[2023-05-17 06:07] LABS: Glucose - Point of Care 105 mg/dl (70-99)
[2023-05-17 06:15] LABS: Urine Bacteria Moderate (Negative); Urine Squamous Cell 0-2 /LPF (Few); Urine White Cell 26-30 /HPF (0-5)
[2023-05-17 07:24] LABS: Glucose - Point of Care 120 mg/dl (70-99)
--- NOTE | 2023-05-17 07:56 | W.PN.HOSP.TC ---
Today's Communication/Plan
-
see bold
Assessment / Plan
Assessment / Plan
Gen: NAD, Awake and alert
Eyes: EOMI, PERRLA, no scleral icterus.
Neck: supple.
CV: RRR, +S1/S2, no m/r/g.
Resp: CTAB, no rales, wheezes, or rhonchi.
Abd: +BS, soft, NT, ND
Skin: No rashes.
Neuro: CN 2-12 intact, non-focal.
Psych: Normal mood and affect.
Syncope due to recurrent hypoglycemia/DM2:
-holding home Glimepiride
-cont dextrose with NaCl but decrease rate to 100cc/hr
-Q2H accuchecks
Hyponatremia:
-Na lower than prior, now 127, likely effect of D10W. Add FR. IVFs changed to Dextrose with NaCl.
Other problems:
Acute on chronic ambulatory dysfunction secondary to deconditioning: PT/OT
Essential HTN: cont Norvasc/Labetalol
HLD: cont statin
CKD3b
Anemia of chronic disease
Depression: cont Lexapro
Recent humeral fracture left arm: Continue immobilization and nonweightbearing
FULL/Lovenox
Anticipated Discharge: 24 - 48 hours
Subjective/Interval History
-
Date of Service: May 17, 2023
Denies CP/SOB.
Objective Data
-
Labs:
Laboratory Results
05/17/23
04:10
WBC 9.8
Hgb 9.0 L
Hct 27.7 L
Plt Count 174
Sodium 127 L
Potassium 5.2 H
Chloride 99
Carbon Dioxide 19 L
BUN 43 H
Creatinine 1.4 H
Glucose 77
Calcium 8.7
Vital Signs:
Vital Signs
Temp Pulse Resp BP Pulse Ox
98.1 F 79 24 125/64 97
05/17/23 03:20 05/17/23 06:00 05/17/23 06:00 05/17/23 06:00 05/17/23 06:00
I&O
05/16/23 05/17/23 05/18/23
06:59 06:59 06:59
Intake Total 2430 / 2430
Output Total 1999
Balance 430 / 430
[2023-05-17 08:28] LABS: Glucose - Point of Care 133 mg/dl (70-99)
[2023-05-17] MEDS: TRANDATE 200 MG PO ×2 (09:05→20:30)
[2023-05-17 09:20] LABS: Glucose - Point of Care 142 mg/dl (70-99)
[2023-05-17 11:05] LABS: Glucose - Point of Care 87 mg/dl (70-99)
[2023-05-17] MEDS: LEXAPRO 10 MG PO (12:52)
[2023-05-17] MEDS: NORVASC PO (12:52)
[2023-05-17 13:05] LABS: Glucose - Point of Care 135 mg/dl (70-99)
[2023-05-17 15:28] LABS: Glucose - Point of Care 128 mg/dl (70-99)
--- NOTE | 2023-05-17 16:49 | CM ---
Patient who was readmitted with Dx Syncope due to recurrent hypoglycemia/DM2, Hyponatremia, ambulatory dysfunction. Room air. Receiving IVF. PT & OT; requires assist of 2, recommend HH vs SNF.
Spoke with patient's son Dru;
the patient resides with her son and daughter in law in a 2 story house with 5 GERRY and first floor bedroom/bath.
The patient requires assistance with ADLs and is w/c bound.
On Sat 05/15 before readmitted, she was able to be wheeled into the bathroom and assisted onto the shower chair & showered independently.
DME - RW, SPC, rollator, w/c, shower chair, glucometer
VN - current with [facility]
SNF - [place]
PCP - Erik Kaminski
Pharmacy - son recently switched from [facility] [address] [facility] to [facility]
Son sounds distressed about the patient's recent 2 episodes of blood sugar dropping and feels he will not be able to manage checking her sugars frequently enough at home. He is requesting Dany-3 or other automated glucose monitor for home. The
PCP provided script for Dany-3 but pharmacy said it was not covered as patient was not an insulin dependent diabetic. He is asking for someone to assist with obtaining an automated glucose monitor---> message to Dr Shah for consideration of
possible need for DM Educator to see patient in this regard.
Discussed patient's current mobility; he does not think patient was happy at SNF and wants to take her home. Discussed her current functional status. Son/DIL can continue to assist at home. Offered Caregiver list ---> sent to his email at
[email or web address].
Plan home with resumption [facility] VN and possibly caregiver.
[2023-05-17 17:15] LABS: Glucose - Point of Care 142 mg/dl (70-99)
[2023-05-17] MEDS: LOVENOX 30 MG SC (17:48)
--- NOTE | 2023-05-17 18:30 | PTCARENOTE ---
assessment as charted. blood sugars above 70 all shift. decreased in frequency to q 2 hour accuchecks. pt eating small amounts. iv fluids with dextrose infusing at 150ml/hr. pt voiding only small amounts. bladder scanned and cathed for 950 mls
yellow urine. pt denied any feeling of pressure or discomfort in her bladder.
[2023-05-17 19:35] LABS: Glucose - Point of Care 280 mg/dl (70-99)
[2023-05-17 21:15] LABS: Glucose - Point of Care 223 mg/dl (70-99)
[2023-05-17] MEDS: LIPITOR 20 MG PO (22:20)
[2023-05-17 23:20] LABS: Glucose - Point of Care 233 mg/dl (70-99)
[2023-05-17] MEDS: DESENEX/MITRAZOL/ZEASORB 1 APPLIC TOPICAL (23:21)
--- NOTE | 2023-05-17 23:28 | PTCARENOTE ---
Assumed care of Pt from day RN. Pt AAOX3 family at bed side. Pt remaining on D10w/nacl with @2hr accuchecks running in the 200s.
[2023-05-17] MEDS: NSS 1000 IV (23:55)
[2023-05-18] VITALS (10 sets, daily range): BP systolic 115–164; BP diastolic 51–74; PULSE 67; O2SAT 97
[2023-05-18 02:24] LABS: Glucose - Point of Care 155 mg/dl (70-99)
[2023-05-18 04:29] LABS: Glucose - Point of Care 122 mg/dl (70-99)
[2023-05-18 05:39] LABS: Blood Urea Nitrogen 29 mg/dl (7-17); Carbon Dioxide 17 mmol/L (22-30); Chloride 112 mmol/L (98-107); Estimated Creatinine Clearance 32 ml/min; Glucose 109 mg/dl (70-99); Potassium 4.6 mmol/L (3.5-5.1); Sodium 134 mmol/L (135-145); eGFR 48.33
--- NOTE | 2023-05-18 06:38 | PTCARENOTE ---
Pt needing to be straight this AM. See work list.
[2023-05-18 06:42] LABS: Glucose - Point of Care 128 mg/dl (70-99)
[2023-05-18 08:46] LABS: Glucose - Point of Care 137 mg/dl (70-99)
[2023-05-18] MEDS: DESENEX/MITRAZOL/ZEASORB 1 APPLIC TOPICAL (08:55)
[2023-05-18] MEDS: TRANDATE 200 MG PO ×2 (08:56→20:23)
--- NOTE | 2023-05-18 10:42 | W.PN.HOSP.TC ---
Today's Communication/Plan
-
see bold
Assessment / Plan
Assessment / Plan
Gen: NAD, Awake and alert
Eyes: EOMI, PERRLA, no scleral icterus.
Neck: supple.
CV: remains RRR, +S1/S2, no m/r/g.
Resp: remains CTAB, no rales, wheezes, or rhonchi.
Abd: remains +BS, soft, NT, ND
Skin: No rashes.
Neuro: CN 2-12 intact, non-focal.
Psych: Normal mood and affect.
Syncope due to recurrent hypoglycemia/DM2:
-holding home Glimepiride
-was on D10W, now on NS
-change accuchecks to AC/HS
Acute urinary retention:
-straight cath protocol
-start Flomax
Other problems:
STEPHIE: resolved with IVFs
Hyponatremia: Na improved to 134. Considering multiple electrolyte abnormalities, consult nephrology.
Acute on chronic ambulatory dysfunction secondary to deconditioning: PT/OT
Essential HTN: cont Norvasc/Labetalol
HLD: cont statin
CKD3b
Anemia of chronic disease
Depression: cont Lexapro
Recent humeral fracture left arm: Continue immobilization and nonweightbearing
FULL/Lovenox
Anticipated Discharge: Within 24 hours
Subjective/Interval History
-
Date of Service: May 18, 2023
Denies CP/SOB/abd pain.
Objective Data
-
Labs:
Laboratory Results
05/18/23
04:18
Sodium 134 L
Potassium 4.6
Chloride 112 H
Carbon Dioxide 17 L
BUN 29 H
Creatinine 1.1 H
Glucose 109 H
Calcium 8.0 L
Vital Signs:
Vital Signs
Temp Pulse Resp BP Pulse Ox
97.9 F 65 20 149/74 97
05/18/23 07:47 05/18/23 06:19 05/18/23 06:19 05/18/23 06:19 05/18/23 06:19
I&O
05/17/23 05/18/23 05/19/23
06:59 06:59 06:59
Intake Total 2430 / 2430 3160 / 3160
Output Total 1999 1900 / 190
Balance 430 / 430 1260 / 1260
[2023-05-18 10:54] LABS: Glucose - Point of Care 195 mg/dl (70-99)
[2023-05-18] MEDS: NORVASC 2.5 MG PO (14:47)
[2023-05-18] MEDS: LEXAPRO 10 MG PO (14:47)
[2023-05-18] MEDS: FLOMAX 0.400000000000000022 MG PO (14:48)
[2023-05-18] MEDS: NSS 1000 IV (14:49)
--- NOTE | 2023-05-18 16:03 | CM ---
CM reviewed chart- ADC <24 hours
Bedside meeting with pt- declined SNF, wants to return home
Call with son to review dc planning
Pt accepted for [facility] by [facility]
No other dc needs noted
As pt with 5STE home, son requesting BLS transport on dc
He noted during last dc, pt was not transported home until 1130pm
Son requesting pt is not to be transported home again late at night
Discharge Disposition- home with [facility] via ambulance
Fax- [phone]
--- NOTE | 2023-05-18 16:07 | CON.MD ---
Consultation - Medical
-
IMP:
Syncope due to recurrent hypoglycemia
DM2
Acute urinary retention
CKD 3b-baseline cr 1.5-2
Non gap metabolic acidosis
Hyponatremia
Acute on chronic ambulatory dysfunction secondary to deconditioning
Essential HTN with recent symp orthostatic hypotension
HLD
Anemia of chronic disease
Depression
Recent humeral fracture left arm
hard of hearing
h/o Influenza 05/09/23
Plan:
A/w hypoglycemia symptomatic
hyponatremia -improving with IVF suggest hypovolemia
if worsens need Urine studies
note she is on low dose SSRI too, ok to cont for now
non gap met acidosis with mild hyperkalemia likely from U retention issues
SC as needed, difficult to have machado in elderly female, flomax started by primary
could start sodium bicarb at 650mg BID
CKD seem to be stable cr better than baseline
BP are stable , check orthostatics
wean iVF as able and encourage po intake
note previous admit pt had nephrotic range proteinuria of 1gm-would like to repeat
[id number]
[2023-05-18] MEDS: LOVENOX 30 MG SC (17:16)
[2023-05-18 17:32] LABS: Glucose - Point of Care 161 mg/dl (70-99)
--- NOTE | 2023-05-18 18:12 | PTCARENOTE ---
05/18 1700. pt not voiding. bladder scanned for 460 mls. machado insertedand drained 500 mls. urine milky yellow, hospitalist made aware. no new orders at this time.
--- NOTE | 2023-05-18 18:50 | PTCARENOTE ---
Pt arrived from IMU on stretcher. Pulled over to bed. Pt settled in bed. NS running at 60/hr. Pt's family in room and will assist pt to order dinner. Pt instructed to ring for assistance. No C/O at this time.
[2023-05-18 19:20] LABS: Protein/creatinine Ratio 4.1; Urine Protein 144 mg/dl
[2023-05-18] MEDS: SODIUM BICARBONATE 650 MG PO (20:23)
[2023-05-18] MEDS: DESENEX/MITRAZOL/ZEASORB TOPICAL (20:25)
[2023-05-18] MEDS: LIPITOR 20 MG PO (21:45)
--- NOTE | 2023-05-19 04:35 | DOWNTIME ---
There was a [employer] Downtime on 05/19/2023 from 0111 to 05/19/2023 at 0405. Downtime documentation of patient's care, including medication administrations, has been reconciled in the electronic record per guidelines. Refer to the
patient's paper chart under the miscellaneous tab to see printed paper medication records and downtime forms.
[2023-05-19 06:00] VITALS: BMI 29.9
[2023-05-19 07:25] VITALS: BP 178/84
[2023-05-19 07:51] LABS: Glucose - Point of Care 124 mg/dl (70-99)
[2023-05-19] MEDS: DESENEX/MITRAZOL/ZEASORB 1 APPLIC TOPICAL (08:51)
[2023-05-19] MEDS: FLOMAX 0.400000000000000022 MG PO (08:52)
[2023-05-19] MEDS: SODIUM BICARBONATE 650 MG PO (08:55)
[2023-05-19] MEDS: TRANDATE 200 MG PO (08:58)
--- NOTE | 2023-05-19 11:33 | W.PN.HOSP.TC ---
Addendum entered and electronically signed by Bart Shah MD 05/19/23 13:23:
Total time spent on d/c = 32 min. This included today's physical exam, progress note, review of laboratory and diagnostic data, preparation of discharge documents and prescriptions, and discussions about the pt's hospital course and discharge plan
with the patient and other medical information officer involved in the patient's care.
Addendum entered and electronically signed by Bart Shah MD 05/19/23 13:00:
severe protein calorie malnutrition
Addendum entered and electronically signed by Bart Shah MD 05/19/23 12:48:
Today's labs reviewed. Patient is medically stable for discharge. Case management is aware.
Original Note:
Today's Communication/Plan
-
check labs, possible d/c today
Assessment / Plan
Assessment / Plan
Gen: NAD, Awake and alert
Eyes: EOMI, PERRLA, no scleral icterus.
Neck: supple.
CV: RRR, +S1/S2
Resp: continues to remain CTAB, no rales, wheezes, or rhonchi.
Abd: continues to remain +BS, soft, NT, ND
Skin: No rashes.
Neuro: CN 2-12 intact, non-focal.
Psych: Normal mood and affect.
Syncope due to recurrent hypoglycemia/DM2:
-holding home Glimepiride
-was on D10W, then on NS, now off IVFs
-change accuchecks to AC/HS
Acute urinary retention:
-machado placed
-Flomax started
Other problems:
STEPHIE: resolved with IVFs
Hyponatremia: Na improved to 134. Appreciate nephrology.
Non-anion gap metabolic acidosis: Bicarb tabs started
Acute on chronic ambulatory dysfunction secondary to deconditioning: PT/OT
Essential HTN: cont Norvasc/Labetalol
HLD: cont statin
CKD3b
Anemia of chronic disease
Depression: cont Lexapro
Recent humeral fracture left arm: Continue immobilization and nonweightbearing
FULL/Lovenox
Anticipated Discharge: Within 24 hours
Subjective/Interval History
-
Date of Service: May 19, 2023
No new complaints.
Objective Data
-
Vital Signs:
Vital Signs
Temp Pulse Resp BP Pulse Ox
98 F 73 16 178/84 95
05/19/23 07:25 05/19/23 08:58 05/19/23 07:25 05/19/23 08:58 05/19/23 07:25
I&O
05/18/23 05/19/23 05/20/23
06:59 06:59 06:59
Intake Total 3160 / 3160 3020 / 3020
Output Total 1900 / 1900 1560 / 1560
Balance 1260 / 1260 1460 / 1460
[2023-05-19 12:02] VITALS: BP 164/73
[2023-05-19 12:03] LABS: Hematocrit 25.5 % (37.0-47.0); Hemoglobin 8.1 g/dL (12.0-16.0); Mean Corp Hgb Conc. 31.8 g/dL (33.0-37.0); Mean Corpuscular Hgb 28.1 pg (27.0-31.0); Mean Corpuscular Volume 88.5 fL (81.0-99.0); Mean Platelet Volume 9.6 fL (7.4-10.4); Platelet Count 169 10^3/uL (130-400); Red Blood Cell Count 2.88 10^6/uL (4.20-5.40); Red Cell Dist. Width 17.2 % (11.5-14.5)
[2023-05-19] MEDS: LEXAPRO 10 MG PO (12:03)
[2023-05-19] MEDS: NORVASC 2.5 MG PO (12:06)
[2023-05-19 12:13] LABS: Blood Urea Nitrogen 23 mg/dl (7-17); Calcium 8.4 mg/dl (8.4-10.2); Carbon Dioxide 20 mmol/L (22-30); Chloride 113 mmol/L (98-107); Estimated Creatinine Clearance 35 ml/min; Glucose 153 mg/dl (70-99); Potassium 4.6 mmol/L (3.5-5.1); Sodium 136 mmol/L (135-145); eGFR 54.19
[2023-05-19 12:26] LABS: Glucose - Point of Care 137 mg/dl (70-99)
--- NOTE | 2023-05-19 12:28 | PN.CDI ---
CDI
- -
CDI:
Physician Documentation Request
Admit Date: 05/16/23 21:48
Dear Doctor Alyssa,
05/18 RD note states ' Significant 10.1% wt loss > 1 month....Pt meets criteria for severe protein calorie malnutrition of chronic illness with significant weight loss in 1 month and prolonged poor intake prior to hospital admission > 1 mo. '
Based on the information, which of the following most accurately represents the patient's nutritional status?
Severe Malnutrition
No nutritional deficiency
Other (please specify)
Neely Criteria ([facility] Hospitalist 2017)
2 or more criteria must be present for either
non severe or severe malnutrition
Note that the criteria differs related to the
presence of an acute or chronic illness
Acute Illness Chronic Illness
Energy Intake Non Severe: <75% for >7 days Non Severe: <75% for >1 month
Severe: <50% for >5 days Severe: <75% for >1 month
Weight Loss Non Severe: 1-2% over 1 week Non Severe: 5% over 1 month
5% over 1 month 7.5% over 3 months
7.5% over 3 months 10% over 6 months
1 year N/A 20% over 1 year
Severe: >2% over 1 week Severe: >5% over 1 month
>5% over 1 month >7.5% over 3 months
>7.5% over 3 months >10% over 6 months
1 year N/A >20% over 1 year
Body Fat Non Severe: Mild Decrease Non Severe: Mild Loss
Severe: Moderate Decrease Severe: Severe Loss
Muscle Mass Non Severe: Mild Decrease Non Severe: Mild Loss
Severe: Moderate Decrease Severe: Severe Loss
Fluid Accumulation Non Severe: Mild Accumulation Non Severe: Mild Accumulation
Severe: Moderate to severe Severe: Moderate to severe
accumulation accumulation
Reduced Facilitator Strength Non Severe: N/A Non Severe: N/A
Severe: Measurably reduced Severe: Measurably reduced
Additional criteria that can be used to Determine if Mild or Moderate Malnutrition (Merck Manual 2018)
Mild Moderate Severe
Albumin gm/dl <3.0 gm/dl <2.5 gm/dl <2.0 gm/dl
Pre Albumin mg/dl <15 gm/dl <10 mg/dl <5.0 mg/dl
BMI <18.5 <17 <16
Use of terms such as suspected, likely, concern for, or probable (associated with a specific diagnosis that is being evaluated, monitored, or treated as if it exists) are acceptable and can be coded in the inpatient setting, when documented at the
time of discharge.
Thank you,
Holly Galeana RN, BSN
CDI Specialist
tiger text
Please use your independent medical judgment in providing your response.
--- NOTE | 2023-05-19 13:35 | W.DCSUMMARY ---
Discharge Summary
Discharge Data
Date of Admission: 05/16/23
Date of Discharge: 05/19/23
-
Pending Results: No
Hospital Course
Primary diagnoses:
Syncope due to recurrent hypoglycemia
Type 2 diabetes mellitus
Acute urinary retention
Acute kidney injury
Hyponatremia
Secondary diagnoses:
Severe protein calorie malnutrition
Non-anion gap metabolic acidosis
Acute on chronic ambulatory dysfunction secondary to deconditioning
Essential hypertension
Hyperlipidemia
Chronic kidney disease stage 3b
Anemia of chronic disease
Depression
Recent humeral fracture left arm
Consultants:
Nephrology
Imaging:
CT brain: No evidence of acute intracranial abnormality.
87-year-old female who presented with hypoglycemia and reported seizure-like activity as outlined in the H&P done on admission. Hospital course by problem list:
Syncope due to recurrent hypoglycemia/DM2: Patient's home glimepiride was held. She was placed on D10 water. She was then transition to normal saline. Her blood glucoses improved while hospitalized. Her diet was liberalized to a regular diet.
Her hemoglobin A1c was 5.8% on May 10, 2023. At this time the patient's will need to follow her blood glucoses twice daily and keep a diary to discuss with her primary care physician in 1 week.
Acute urinary retention: The patient required Clemons catheter placement. Flomax was started. She will need a voiding trial in 1 week with urology.
STEPHIE: This resolved with IVFs.
Hyponatremia: Resolved with IVFs.
Discharge Plan
-
Patient Disposition: Home with Home Care
Discharge Diagnosis/Procedures: Hypoglycemia, acute urinary retention, acute kidney injury
Condition: Good
Diet: No restrictions
Activity: As tolerated
Driving Restrictions: Not until seen by your Dr
Other Services: VN
Activity Restrictions/Additional Instructions:
You need to make an appointment with urologist for voiding trial. Please check your blood sugars/glucoses in the morning and in the evening and keep a diary discussed with your primary care physician in 1 week.
Referrals:
Christopher Apple MD [Active] - in less than 1 week
Erik Kaminski MD [Family Provider] - in less than 1 week
Prescriptions:
New
tamsulosin 0.4 mg Capsule
0.4 mg PO DAILY Qty: 30 0RF
sodium bicarbonate 650 mg Tablet
650 mg PO BID Qty: 60 0RF
Continued
atorvastatin [Lipitor] 20 mg Tablet
20 mg PO HS
escitalopram oxalate 10 mg Tablet
10 mg PO NOON
acetaminophen [Tylenol] 325 mg Tablet
325 mg PO TIDPRN PRN (Reason: mild pain)
loperamide 2 mg Tablet
2 mg PO BIDPRN PRN (Reason: diarrhea)
hydrocortisone [Preparation H Hydrocortisone] 1 % Cream
1 applic TOPICAL BID PRN (Reason: hemorrhoids)
Visbiome 112.5 billion cell Capsule
1 cap PO DAILY
guaifenesin [Mucinex] 600 mg Tablet Extended Release 12hr
600 mg PO BID
amlodipine 2.5 mg Tablet
2.5 mg PO DAILY@1200 Qty: 0 0RF
labetalol 200 mg tablet
200 mg PO BID
Discontinued
glimepiride 1 mg Tablet
0.5 mg PO DAILY Qty: 0 0RF
Discharge Orders:
Discharge Patient (As Directed); Ordered 05/19/23
Ordered By: Bart Shah
--- NOTE | 2023-05-19 14:13 | CM ---
Patient for d/c home today.
Ambulance medical necessity forms on the chart.
IMM reviewed and signed.
patient for d/c home with Clemons cath.
Spoke with son, aware of d/c today, transport time 3:30 pm.
Plan: home with [facility]
--- NOTE | 2023-05-19 14:19 | W.PN.NEPH.PH ---
Today's Communication / Plan
-
nephrology to sign off
Assessment/Plan
-
IMP:
Syncope due to recurrent hypoglycemia
DM2
Acute urinary retention
CKD 3b-baseline cr 1.5-2
Non gap metabolic acidosis
Hyponatremia
Acute on chronic ambulatory dysfunction secondary to deconditioning
Essential HTN with recent symp orthostatic hypotension
HLD
Anemia of chronic disease
Depression
Recent humeral fracture left arm
hard of hearing
h/o Influenza 05/09/23
Plan:
A/w hypoglycemia symptomatic
Na normalized to 136 with IVF suggesting hypovol hypona
note she is on low dose SSRI too, ok to cont for now
non gap met acidosis with mild hyperkalemia likely from U retention issues
SC as needed, difficult to have machado in elderly female, flomax started by primary
c/w sodium bicarb at 650mg BID
CKD seem to be stable cr better than baseline
BP are stable , check orthostatics
encourage PO intake
UPCR improved from 10.2 --> 4.1. continue to monitor
-
-
Date of Service: May 19, 2023
CC / HPI / ROS
-
Chief Complaint:
hyponatremia
History of Present Illness:
Na improved
Review of Systems:
no complaints, feeling well
Labs
-
Labs:
WBC 6.0 10^3/uL (4.8-10.8) 05/19/23 11:52
RBC 2.88 10^6/uL (4.20-5.40) L 05/19/23 11:52
Hgb 8.1 g/dL (12.0-16.0) L 05/19/23 11:52
Hct 25.5 % (37.0-47.0) L 05/19/23 11:52
Plt Count 169 10^3/uL (130-400) 05/19/23 11:52
Sodium 136 mmol/L (135-145) 05/19/23 11:52
Potassium 4.6 mmol/L (3.5-5.1) 05/19/23 11:52
Chloride 113 mmol/L (98-107) H 05/19/23 11:52
Carbon Dioxide 20 mmol/L (22-30) L 05/19/23 11:52
BUN 23 mg/dl (7-17) H 05/19/23 11:52
Creatinine 1.0 mg/dL (0.6-1.0) 05/19/23 11:52
eGFR 54.19 05/19/23 11:52
Glucose 153 mg/dl (70-99) H 05/19/23 11:52
Calcium 8.4 mg/dl (8.4-10.2) 05/19/23 11:52
Albumin 3.1 g/dl (3.5-5.0) L 05/16/23 19:12
Physical Exam
-
Vital Signs:
Vital Signs
Temp Pulse Resp BP Pulse Ox
97.5 F 71 20 164/73 98
05/19/23 12:02 05/19/23 12:06 05/19/23 12:02 05/19/23 12:06 05/19/23 12:02
Cardiovascular:: Regular rate and rhythm
Respiratory:: Bilateral: Coarse
Lung Excursion:: Normal
Abdomen:: Distended, Nontender and Soft
Bowel Sounds:: Normal
Extremity Edema:: None: Bilateral:
Machado Catheter: No
== END 2023-05-19 16:29 | disposition home health service (06) | DRG 637 ==
LOC: 4 WEST ACU 21:48
PROVIDERS: Clinical Nurse Specialist Family Health; Registered Nurse; ADMITTING PHYSICIAN Internal Medicine; ATTENDING PHYSICIAN Internal Medicine; CONSULT PHYSICIAN Internal Medicine; EMERGENCY PHYSICIAN Emergency Medicine; FAMILY PHYSICIAN Internal Medicine Geriatric Medicine
DX: E11.649 Type 2 diabetes mellitus with hypoglycemia without coma (principal); E43 Unspecified severe protein-calorie malnutrition; N39.0 Urinary tract infection, site not specified; E87.20 Acidosis, unspecified; E87.1 Hypo-osmolality and hyponatremia; I12.9 Hypertensive chronic kidney disease with stage 1 through stage 4 chronic kidney disease, or unspecified chronic kidney disease; N17.9 Acute kidney failure, unspecified; N18.32 Chronic kidney disease, stage 3b; E11.22 Type 2 diabetes mellitus with diabetic chronic kidney disease; E78.00 Pure hypercholesterolemia, unspecified; I95.1 Orthostatic hypotension; F32.A Depression, unspecified; D63.1 Anemia in chronic kidney disease; E87.5 Hyperkalemia; Z68.29 Body mass index [BMI] 29.0-29.9, adult
CPT/HCPCS: 70450; 80048; 80053; 81003; 81015; 82533; 82570; 82962; 84156; 84484; 85025; 85027; 93005; 96374; 97163; 97167; 97530; 99285

== ENCOUNTER 2023-08-07 10:16 | Emergency (ER) | payer MEDICARE, OTHER, SELFPAY ==
[2023-08-07 10:22] VITALS: BP 165/73
[2023-08-07 11:40] LABS: % Basophils 0.5 % (0-2); % Eosinophils 3.6 % (0-6); % Immature Granulocytes 0.2 % (0-0.5); % Lymphocytes 11.5 % (20.5-51.1); % Monocytes 10.1 % (1.7-9.3); % Neutrophils 74.1 % (42.2-75.2); Absolute Eosinophils 0.2 10^3/uL (0-0.7); Absolute Lymphocytes 0.7 10^3/uL (1.2-3.4); Absolute Monocytes 0.6 10^3/uL (0.1-0.6); Absolute Neutrophils 4.7 10^3/uL (1.4-6.5); Hematocrit 30.8 % (37.0-47.0); Hemoglobin 9.6 g/dL (12.0-16.0); Mean Corp Hgb Conc. 31.2 g/dL (33.0-37.0); Mean Corpuscular Hgb 27.8 pg (27.0-31.0); Mean Corpuscular Volume 89.3 fL (81.0-99.0); Mean Platelet Volume 9.9 fL (7.4-10.4); Nucleated Red Blood Cells % 0 %; Platelet Count 172 10^3/uL (130-400); Red Blood Cell Count 3.45 10^6/uL (4.20-5.40); Red Cell Dist. Width 14.5 % (11.5-14.5); White Blood Cell Count 6.3 10^3/uL (4.8-10.8)
[2023-08-07 11:55] LABS: APTT 41.1 Sec (23.4-35.0)
[2023-08-07 12:03] LABS: ALT (SGPT) 13 U/L (0-35); AST (SGOT) 17 U/L (14-36); Albumin 3.6 g/dl (3.5-5.0); Alkaline Phosphatase 64 U/L (38-126); Blood Urea Nitrogen 36 mg/dl (7-17); Calcium 9.5 mg/dl (8.4-10.2); Carbon Dioxide 26 mmol/L (22-30); Chloride 107 mmol/L (98-107); Glucose 145 mg/dl (70-99); Potassium 5.1 mmol/L (3.5-5.1); Sodium 136 mmol/L (135-145); Total Bilirubin 0.6 mg/dl (0.2-1.3); Total Protein 6.3 g/dl (6.3-8.2); eGFR 35.96
[2023-08-07 12:11] LABS: NT-proBNP 2170 pg/ml
[2023-08-07 12:36] VITALS: BP 190/71
[2023-08-07 13:05] VITALS: BP 193/85
--- NOTE | 2023-08-07 13:17 | ED.GENMED ---
History of Present Illness
General
Chief Complaint: Swelling
Source: patient
Exam Limitations: none
Time Seen by Provider: 08/07/23 10:48
Nursing documentation reviewed up to this point in time: agreed with
Travel History
Have you had any contact with someone who has COVID-19?: No
Do you have any symptoms of coronavirus? Fever > 100 degrees, chills, cough, shortness of breath, sore throat, loss of taste or smell, muscle aches, or headache?: No
History of Present Illness
History of Present Illness:
88 y/o F with h/o HTN, HLD, NIDDM
here with left sided leg swelling worse from baseline and with some skin erythema x 1-2 weeks
pt has chronic edema in that leg, unknown cause but usually less severe
she started having some pinkness to the foot/ankle a week ago
3 days ago got seen by home PCP and was ordered dvt study which they were unable to schedule and kefle 500 mg bid [facility] pt has had 5 doses of
she has had slight worsening in the redness now in the pretibial reigion
no pain
she is mostly nonambulatory at [facility] and son thinks this is why it is more wollen
they have not tried compression stockings
no fever, chills, cp, sob
due for her afternoon dose of amlodiine
and is anxious ni hospitals so bp elevated
Past History
Past History
ED Past Medical History: HTN, Hypercholesterolemia, NIDDM, Renal failure (Chronic kidney disease stage III) and Other (UTIs, one episode of urosepsis)
ED Past Surgical History: Other (Patient has a history of a hysterectomy)
Social History
Tobacco: Non-smoker
Alcohol: None
Personal:
Living: with family
Employment: Retired
Family History
Family History: Other (Noncontributory)
Review of Systems
Review of Systems
Allergies reviewed?: Yes
All Other Systems: Not applicable
Phy Exam
Physical Exam
Physical Exam:
GENERAL: Alert , in no apparent distress
EYE: pupils equal and reactive
NECK: Supple
ENT: o/p clr, mmm.
CARDIAC: Regular rate and rhythm .+ edema in LLE, nonppitting, molderate from below knee to foot
LUNGS: Clear breath sounds bilaterally, no acute respiratory distress, no wheezes/rales/rhonchi
ABDOMEN: Soft, without focal tenderness, no r/g, no cvat, normal bowel sounds
NEUROLOGICAL: Alert and oriented, no focal neuro deficits
SKIN: Warm and dry, skin intact.
VERY MINIMAL PINK SKIN TO LLE anterior pretibial region to top of foot
MUSCULOSKELETAL: mild to mod LLE nonpitting edema, well perfused, pulse nintct. neg randa's sign
PSYCH: Normal and appropriate interaction.
Scores
Heart Failure Risk
Heart Failure Risk Score: Not Applicable
Course
Orders/Labs/Results
Orders:
Orders
08/07/23 11:06
CR Chest - 2 Views Urgent
Comment:
Reason For Exam: edema
Venous Doppler Lwr Ext Left [US Periph Venous LOWER Ext LT] Urgent
Comment:
Reason For Exam: left leg swelling
08/07/23 11:23
Complete Blood Count/With Diff Urgent
Comprehensive Metabolic Panel Urgent
NT-proBNP Urgent
PTT Urgent
Prothrombin Time Urgent
Abnormal Lab Results
08/07/23
11:23
RBC 3.45 L 10^6/uL
(4.20-5.40)
Hgb 9.6 L g/dL
(12.0-16.0)
Hct 30.8 L %
(37.0-47.0)
MCHC 31.2 L g/dL
(33.0-37.0)
Absolute Lymphs (auto) 0.7 L 10^3/uL
(1.2-3.4)
Lymphocytes % 11.5 L %
(20.5-51.1)
Monocytes % 10.1 H %
(1.7-9.3)
PT 15.0 H Sec
(11.4-14.6)
APTT 41.1 H Sec
(23.4-35.0)
BUN 36 H mg/dl
(7-17)
Creatinine 1.4 H mg/dL
(0.6-1.0)
Glucose 145 H mg/dl
(70-99)
08/07/23 11:23
08/07/23 11:23
Vital Signs
Initial and Last Documented VS:
Initial Vital Signs
Temp Pulse Resp BP Pulse Ox
98.8 F 58 16 165/73 95
08/07/23 10:22 08/07/23 10:22 08/07/23 10:22 08/07/23 10:22 08/07/23 10:22
Last Documented Vital Signs
Temp Pulse Resp BP Pulse Ox
98.8 F 59 18 193/85 94
08/07/23 10:22 08/07/23 13:05 08/07/23 12:36 08/07/23 13:05 08/07/23 12:36
MDM/Problems Addressed
Differential Diagnosis Includes:
chf, dvt, cellulitis
MDM/Problems Addressed:
88-year-old female with hypertension, high cholesterol here with son and [id number] whom she lives with presenting for increased swelling and slight pink/redness to the lower extremity over the last 1 to 2 weeks. Initially started just being
swollen but now is slightly pink. She got seen by her PCP who ordered keflex (ckd so her dose is 500 mg bid) and the pink is worsening slightly as it is extending prximally but no pain, fevre, cp, sob
on exam she has very minimal pink discoloratino to the skin without warmth, tendenress
normal pulse
clear lungs
edeam LLE
dvt study neg
wbc normal
anemia stable
cr stable
bnp 1999 but has been similar and had normal EF on echo, cxr clear indep reviewed by me
d/w ed attending
wuill try compression
instead of changing abx, will continue keflex becuase pt has not had long course
and have pcp f/u
appreciate hier elevated BP which is usual for her in this setting according to family
they will check it at home, after giving her amlodpine
*Critical Care Note
Total Time (30-74mins, 75-104mins- exclusive of procedures): Not Applicable
ED Attending Note
-
Portions of this chart may have been created with voice recognition software.� Occasional wrong word or��sound alike� substitutions may have occurred due to the inherent limitations of voice recognition software.
Discharge Plan
Departure
Patient Disposition: Home (Routine Discharge)
Date of Disposition: 08/07/23
Time of Disposition: 13:01
Patient with high blood pressure during this ER visit?: Yes
Condition: Fair
Covid-19: Not Applicable
Discharge Problem:
Edema, Hypertension, Venous stasis
Instructions: Dependent Edema (DC), BLOOD PRESSURE
Prescriptions:
No Action
atorvastatin [Lipitor] 20 mg Tablet
20 mg PO HS
escitalopram oxalate 10 mg Tablet
10 mg PO NOON
acetaminophen [Tylenol] 325 mg Tablet
325 mg PO TIDPRN PRN (Reason: mild pain)
loperamide 2 mg Tablet
2 mg PO BIDPRN PRN (Reason: diarrhea)
hydrocortisone [Preparation H Hydrocortisone] 1 % Cream
1 applic TOPICAL BID PRN (Reason: hemorrhoids)
Visbiome 112.5 billion cell Capsule
1 cap PO DAILY
guaifenesin [Mucinex] 600 mg Tablet Extended Release 12hr
600 mg PO BID
amlodipine 2.5 mg Tablet
2.5 mg PO DAILY@1200 Qty: 0 0RF
labetalol 200 mg tablet
200 mg PO BID
tamsulosin 0.4 mg Capsule
0.4 mg PO DAILY Qty: 30 0RF
sodium bicarbonate 650 mg Tablet
650 mg PO BID Qty: 60 0RF
Referrals:
Erik Kaminski MD [Family Provider] - Follow up in 2-3 days
Activity Restrictions/Additional Instructions:
Your ultrasound showed no blood clot. You do have some swelling in that leg. Try to wear compression stocking, these are [id number] or you can ask the physician to write you a prescription 1. Use that 12 hours a day, while she is awake and
then take it off at night. Watch the redness for any worsening streaking up her leg, deepening of the redness, pain, fever etc. and she should be reassessed by her family doctor or return if these things are happening. Her blood pressure was
elevated but she is due for her medications. Please have this rechecked. Return to the ER for any concerns
Interventions
Interventions:
*Risk Screen - Suicide Last Done: 08/07/23 10:22
*General Assessment Last Done: 08/07/23 10:43
*Neglect/Abuse Screening Last Done: 08/07/23 10:22
ED- Cardiac Assessment Last Done: 08/07/23 11:27
ED- Pulmonary Assessment Last Done: 08/07/23 11:27
ED-Skin Assessment Last Done: 08/07/23 11:27
Discharge Date and Time
Print Language: URDU
== END 2023-08-07 13:36 | disposition home or self-care (01) ==
LOC: EMR 10:16
PROVIDERS: Physician Assistant; EMERGENCY PHYSICIAN Emergency Medicine; FAMILY PHYSICIAN Internal Medicine Geriatric Medicine
DX: R60.9 Edema, unspecified (principal); I13.0 Hypertensive heart and chronic kidney disease with heart failure and stage 1 through stage 4 chronic kidney disease, or unspecified chronic kidney disease; I87.8 Other specified disorders of veins; N18.30 Chronic kidney disease, stage 3 unspecified; E78.00 Pure hypercholesterolemia, unspecified
CPT/HCPCS: 99285; 71046; 80053; 83880; 85025; 85610; 85730; 93971

== ENCOUNTER → 2023-08-28 07:47 | Outpatient (REF) | payer MEDICARE, OTHER, SELFPAY ==
[2023-08-28 08:59] LABS: % Basophils 0.6 % (0-2); % Eosinophils 3.6 % (0-6); % Immature Granulocytes 0.3 % (0-0.5); % Lymphocytes 10.9 % (20.5-51.1); % Monocytes 7.5 % (1.7-9.3); % Neutrophils 77.1 % (42.2-75.2); Absolute Eosinophils 0.2 10^3/uL (0-0.7); Absolute Lymphocytes 0.7 10^3/uL (1.2-3.4); Absolute Monocytes 0.5 10^3/uL (0.1-0.6); Absolute Neutrophils 5.2 10^3/uL (1.4-6.5); Hematocrit 31.9 % (37.0-47.0); Hemoglobin 9.9 g/dL (12.0-16.0); Mean Corpuscular Hgb 27.5 pg (27.0-31.0); Mean Corpuscular Volume 88.6 fL (81.0-99.0); Mean Platelet Volume 10.3 fL (7.4-10.4); Nucleated Red Blood Cells % 0 %; Platelet Count 201 10^3/uL (130-400); Red Cell Dist. Width 14.6 % (11.5-14.5); White Blood Cell Count 6.7 10^3/uL (4.8-10.8)
[2023-08-28 09:54] LABS: NT-proBNP 2140 pg/ml
[2023-08-28 12:11] LABS: Glycohemoglobin (HgbA1c) 6.9 % (4.0-5.6)
== END ==
LOC: RAD 07:47
PROVIDERS: ATTENDING PHYSICIAN Internal Medicine Geriatric Medicine
DX: I35.0 Nonrheumatic aortic (valve) stenosis (principal); M79.89 Other specified soft tissue disorders; R26.89 Other abnormalities of gait and mobility; R29.6 Repeated falls; Z99.89 Dependence on other enabling machines and devices; Z09 Encounter for follow-up examination after completed treatment for conditions other than malignant neoplasm; I87.2 Venous insufficiency (chronic) (peripheral); E11.22 Type 2 diabetes mellitus with diabetic chronic kidney disease
CPT/HCPCS: 36415; 83036; 83880; 85025